=== PATIENT | female | born 1955 | race Caucasian/White ===

== ENCOUNTER 2020-02-26 17:20 | Inpatient (IN) | payer OTHER, MEDICARE, SELFPAY ==
[2020-02-26] VITALS (7 sets, daily range): BP systolic 101–132; BP diastolic 64–81; PULSE 67–89; RESP 14–20; TEMP 36–37.7; O2SAT 90–96; BMI 27.3; BMI 26.7
--- NOTE | 2020-02-26 18:10 | EKG12_ITS ---
Test Reason : COUGH Blood Pressure : / mmHG Vent. Rate : 072 BPM Atrial Rate : 072 BPM P-R Int : 122 ms QRS Dur : 106 ms QT Int : 414 ms P-R-T Axes : 007 043 046 degrees QTc Int : 453 ms Normal sinus rhythm Nonspecific ST abnormality Abnormal ECG Confirmed by SRAVAN MG, JACKELINE ([id number]), dictionary editor ANTONI BAUM ([id number]) on 02/29/2020 8:52:09 A M Referred By: CRISTIANE Confirmed By:ZURDO HINSON MD
--- NOTE | 2020-02-26 18:17 | NURSING ---
NO OLD EKGS
[2020-02-26 18:33] LABS: Absolute Neutrophil Count 3.3 X10^3/uL (2.0-7.7); Basophil# 0.02 X10^3/uL; Basophil% 0.5 % (0-1); Hematocrit 40.2 % (37-47); Hemoglobin 13.6 g/dL (12.0-15.0); Lymphocyte % 16.6 % (19-41); Mean Corp Hgb Conc 33.8 g/dL (32-36); Mean Corpuscular Hgb 30.2 pg (27.0-32.0); Mean Corpuscular Volume 89.1 fL (81-99); Mean Platelet Vol. 10.4 fl (6.2-12.0); Monocyte# 0.22 X10^3/uL; Monocyte% 5.2 % (0-10); NRBC Flagged by Analyzer 0 % (0-5); Neutrophil # 3.25 X10^3/uL (2.7-7.7); Neutrophil % 77.2 % (47-70); Platelet Count 238 K/mm3 (150-450); RBC Distribution Width CV 13.1 % (11.6-14.6); Red Blood Count 4.51 M/mm3 (4.2-5.4); White Blood Count 4.2 K/mm3 (4.4-11.0)
[2020-02-26] MEDS: dexAMETHasone 10 MG/ML Vial 6 MG IV (18:55)
[2020-02-26 18:59] LABS: ALB/GLOB Ratio 0.8 RATIO (0.9-2.4); AST(SGOT) 41 U/L (15-37); Alanine Aminotransfer ALT/SGPT 63 U/L (13-56); Albumin, Serum 3.7 g/dL (3.2-5.0); Alkaline Phosphatase 62 U/L (45-117); Anion Gap 8 (5-15); BUN 10 mg/dL (7-18); BUN/Creat Ratio 10.4 RATIO (10-20); Calcium,Total 9.2 mg/dL (8.5-10.1); Chloride 101 mmol/L (98-107); Creatinine, Serum 0.96 mg/dL (0.55-1.02); EST Glomerular Filtration Rate 63 mL/min (>60); Est Glom Filt Rate - Afr Amer 76 mL/min (>60); Estimated Creatinine Clearance 61.29 ml/min; Globulin 4.8 g/dL (2.2-4.2); Glucose 192 mg/dL (74-106); Potassium 2.9 mmol/L (3.5-5.1); Protein, Total 8.5 g/dL (6.4-8.2); Sodium Level 136 mmol/L (136-145)
--- NOTE | 2020-02-26 19:00 | RAD_ITS ---
STUDY: X-RAY CHEST REASON FOR EXAM: Female, 64 years old. Cough TECHNIQUE: Frontal view of the chest COMPARISON: 09/28/16 FINDINGS: There is a right lower lobe infiltrate. The lungs are otherwise clear. There are no pleural effusions. There is no pneumothorax. The heart is normal in size. The visualized osseous structures are within normal limits. RAD/Chest 1 View (Portable) IMPRESSION: Right lower lobe infiltrate. Electronically Signed: Giovanny Stafford, at 20:03 EST Tel , Service support ,
[2020-02-26 19:03] LABS: Lactic Acid 1.3 mmol/L (0.4-1.9)
--- NOTE | 2020-02-26 21:20 | ED.VIS.GEN ---
History of Present Illness Chief Complaint: Cough Narrative: Patient presents with shortness of breath for the past few days. She has subjective fevers. She is worried about Covid. She does not know about exposure. As I walk into the room she is hypoxic at 88%. She is complaining of myalgias and generalized weakness as well as shortness of breath. She has a cough which is mildly productive. Past Medical History - Allergies and Home Meds Allergies/Adverse Reactions: Allergies Penicillins Adverse Reaction (Mild, Verified 02/26/20 17:22) Rash ANTIHISTAMINES Adverse Reaction (Intermediate, Uncoded 02/26/20 17:22) Other intensifies RLS Primary Care Physician: Christian Saini WATER PURIFIER OPERATOR, WATER PURIFIER OPERATOR-C [Primary Care Provider] - Past Medical History: - - Hypertension, hypothyroidism, diabetes Smoking Status: Never smoker Review of Systems All systems negative except as indicated General: Reports: Fever. Denies: Chills Eyes: Denies: Visual changes - bilaterally ENT: Reports: Rhinorrhea. Denies: Sore throat Cardiovascular: Denies: Chest pain, Palpitations Respiratory: Reports: Dyspnea, Cough. Denies: Sputum Gastrointestinal: Denies: Abdominal pain, Nausea Genitourinary: Denies: Dysuria Musculoskeletal: Denies: Myalgias Skin: Denies: Rash, Abscess Neurological: Denies: Headache, Weakness Psych: Denies: Depression Endocrine: Denies: Polyuria Hematologic: Denies: Easy bruising Allergy: Denies: Uticaria Physical Exam Vital Signs/Narrative: Vital Signs Temp Pulse Resp BP Pulse Ox 02/26/20 19:01 71 18 115/77 96 02/26/20 17:45 90 02/26/20 17:22 99.8 F H 89 18 132/75 H 93 General: Well nourished, - - Patient does appear in some distress Head: Normocephalic Eyes: Negative for: Pale conjunctiva ENT: Moist mucous membranes Neck: Supple, Nontender Cardiovascular: Regular rate, Regular rhythm Respiratory: - - Course bilateral breath sounds she is speaking in full sentences she is slightly tachypneic. Abdomen: Soft, Nontender Back: Nontender, Normal Inspection Extremities: Nontender Skin: Normal color, No rash Neurological: Alert, Normal Strength, Normal Sensation Psychological: Normal affect Diagnostic/Tx/Re-eval Chest X-Ray - ED: 1 View, Read by ED Physician, Read by Radiologist, Normal, Heart, Right Infiltrate - Medical Decision Making Patient is found a pneumonia, Covid is negative however she does have loss of smell and taste and myalgia's, I will repeat an antibody test. Patient will be admitted she is hypoxic she is 87 to 88% on room air. ED Disposition - Plan for ED Patient: Disposition: Acute Care Hospital [facility] Diagnosis: Pneumonia, Hypoxia Referrals: Christian Saini WATER PURIFIER OPERATOR, WATER PURIFIER OPERATOR-C [Primary Care Provider] -
--- NOTE | 2020-02-26 21:36 | HP.PCM_ITS ---
Problem List (1) Pneumonia Status: Acute (2) Hypoxia Status: Acute (3) Pulmonary hypertension Status: Chronic Comment: Recent echocardiogram shows a PAS P of 30 mmHg, this qualifies as mild pulmonary hypertension. May consider repeating echocardiogram 6 months after initiating pressure support therapy. Follow-up with Dr. Whitley in 2 months. (4) JOSE EDUARDO (obstructive sleep apnea) Status: Chronic Comment: Patient has been ordered nasal CPAP of 11 cmH2O and will be set up soon. Will follow up with Dr. Whitley in 2 months to evaluate her response to pressure support therapy. The patient has been encouraged to contact the office with any difficulties that she may be experiencing in the meantime. No additional testing at this time. (5) Depression Status: Chronic (6) Anxiety Status: Chronic (7) Hyperlipemia Status: Chronic (8) Fatigue Status: Chronic (9) Joint pain Status: Chronic (10) Headache Status: Chronic (11) Snoring Status: Chronic (12) unintentional weight gain Status: Chronic (13) Shortness of breath Status: Chronic (14) Cough Status: Chronic Comment: Significantly improved with the addition of nasal steroid. (15) Allergic rhinitis Status: Chronic Qualifiers: Allergic rhinitis trigger: unspecified Allergic rhinitis seasonality: unspecified seasonality (16) GERD (gastroesophageal reflux disease) Status: Chronic (17) Postnasal drip Status: Chronic Comment: Has improved with the addition of the nasal steroid, both symptomatically as well as on physical exam. No change in maintenance medications at this time. Follow-up with Dr. Whitley in 2 months. (18) Narcolepsy Status: Chronic (19) Hypersomnia Status: Chronic History of Present Illness Date of Admission: 02/26/20 Chief Complaint: malaise The patient is a 64 year old F with a significant history of narcolepsy who presents emergency department with malaise x1 week. Associated with her symptoms is shortness of breath; a dry cough; fever and chills. She reported home temperature of 101.9 Fahrenheit. Further she has lost her sense of taste and a sense of smell. She reports muscle aches and diarrhea. She denies any nausea or vomiting. She think that she might have been exposed to somebody with COVID-19 virus. Past Medical History Past Medical History (Chronic Problems): Chronic Problems (Last Reviewed 02/26/20 @ 22:[address] Kwesi Hamilton MD) Pulmonary hypertension (Chronic) Recent echocardiogram shows a PAS P of 30 mmHg, this qualifies as mild pulmonary hypertension. May consider repeating echocardiogram 6 months after initiating pressure support therapy. Follow-up with Dr. Whitley in 2 months. JOSE EDUARDO (obstructive sleep apnea) (Chronic) Patient has been ordered nasal CPAP of 11 cmH2O and will be set up soon. Will follow up with Dr. Whitley in 2 months to evaluate her response to pressure support therapy. The patient has been encouraged to contact the office with any difficulties that she may be experiencing in the meantime. No additional testing at this time. Depression (Chronic) Anxiety (Chronic) Hyperlipemia (Chronic) Fatigue (Chronic) Joint pain (Chronic) Headache (Chronic) Snoring (Chronic) unintentional weight gain (Chronic) Shortness of breath (Chronic) Cough (Chronic) Significantly improved with the addition of nasal steroid. Allergic rhinitis (Chronic) GERD (gastroesophageal reflux disease) (Chronic) Postnasal drip (Chronic) Has improved with the addition of the nasal steroid, both symptomatically as well as on physical exam. No change in maintenance medications at this time. Follow-up with Dr. Whitlye in 2 months. Narcolepsy (Chronic) Hypersomnia (Chronic) Medical History: Medical History (Last Reviewed 02/26/20 @ 23:[address] Kwesi Hamilton MD) Depression (Chronic) F32.9 Anxiety (Chronic) F41.9 Hyperlipemia (Chronic) E78.5 Fatigue (Chronic) R53.83 Joint pain (Chronic) M25.50 Headache (Chronic) R51 Snoring (Chronic) R06.83 unintentional weight gain (Chronic) Shortness of breath (Chronic) R06.02 Cough (Chronic) R05 Significantly improved with the addition of nasal steroid. Allergic rhinitis (Chronic) J30.9 GERD (gastroesophageal reflux disease) (Chronic) K21.9 Postnasal drip (Chronic) R09.82 Has improved with the addition of the nasal steroid, both symptomatically as well as on physical exam. No change in maintenance medications at this time. Follow-up with Dr. Whitley in 2 months. Narcolepsy (Chronic) G47.419 Prophylactic vaccination against streptococcus pneumoniae and influenza (Inactive) Z23 Hypersomnia (Chronic) G47.10 Kidney stones Allergies Penicillins Adverse Reaction (Mild, Verified 02/26/20 17:22) Rash ANTIHISTAMINES Adverse Reaction (Intermediate, Uncoded 02/26/20 17:22) Other intensifies RLS Home Medications: Ambulatory Orders Medication Instructions Recorded Cetirizine HCl [Allergy Relief] 10 mg PO QHS 06/17/15 Esomeprazole Mag Trihydrate 40 mg PO DAILY 06/17/15 [Nexium] Estrogens, Conjugated [Premarin] 0.625 mg PO DAILY 06/17/15 Gabapentin [Neurontin] 300 mg PO QHS 06/17/15 Levothyroxine [Synthroid] 75 mcg PO DAILY 06/17/15 Ropinirole HCl [Requip] 1 mg PO QHS 06/17/15 buPROPion XL [Wellbutrin Xl] 150 mg PO DAILY 06/17/15 albuterol sulfate 90 mcg/actuation 2 puff INHALATION Q4H g 02/23/17 aerosol inhaler Benzonatate [Tessalon Perle] 100 mg PO TID PRN PRN 02/26/20 Buspirone HCl 10 mg PO BID 02/26/20 Fluoxetine [Prozac] 20 mg PO DAILY 02/26/20 Glipizide [Glucotrol] 10 mg PO DAILY 02/26/20 Metformin HCl 1,000 mg PO BID 02/26/20 Surgical History: Surgical History (Last Reviewed 02/26/20 @ 22:[address] Kwesi Hamilton MD) H/O: knee surgery Z98.890 History of bilateral carpal tunnel release Z98.890 History of cholecystectomy Z90.49 History of surgical removal of pituitary gland E89.3 History of tonsillectomy Z90.89 S/P ankle ligament repair Z98.890 Smoking Status: Never smoker - *Family History Paternal Family History: Family History (Last Reviewed 02/26/20 @ 22:[address] Kwesi Hamilton MD) Mother Hypertension High cholesterol Osteoporosis Depression CVA (cerebral vascular accident) Father Hypertension Review of Systems Constitutional: Reports: Anorexia, Chills, Fever, Malaise, Fatigue. Denies: Weight Change HEENT: Denies: Head Aches, Sinus Congestion, Sinus Drainage Cardiovascular: Denies: Chest Pain, Palpitations Respiratory: Reports: Cough, Shortness of Breath. Denies: Sputum production Gastrointestinal: Reports: Diarrhea. Denies: Abdominal Pain, Nausea, Vomiting Genitourinary: Denies: Dysuria Musculoskeletal: Reports: Muscle pain. Denies: Joint Pain, Joint Tenderness Skin: Denies: Rash, Wounds Neurological: Denies: Numbness, Tingling, Focal weakness Psychiatric: Denies: Anxiety, Depression, Homicidal Ideations, Suicidal Ideations Hematologic/ Lymphatic: Denies: Easy Bruising, Easy Bleeding VTE Information - Inpt Only VTE Present on Admission: No VTE Mechan Device Prophylaxis: None VTE Pharm Prophylaxis ordered?: Yes Patient Problems: Active and Suspected Problems (Last Reviewed 02/26/20 @ 22:[address] Kwesi Hamilton MD) Pneumonia (Acute) Hypoxia (Acute) - Physical Exam Vitals/I&O's: Vital Signs Temp Pulse Resp BP Pulse Ox 99.8 F H 71 18 115/77 96 02/26/20 17:22 02/26/20 19:01 02/26/20 19:01 02/26/20 19:01 02/26/20 19:01 Oxygen Flow Rate (L/min) 3 Oxygen Delivery Method Nasal Cannula Weight: 81.647 kg Body Mass Index (BMI) 27.3 General: Alert, Oriented x3, Cooperative HEENT: Atraumatic, PERRLA, EOMI, Normocephalic Neck: Supple, No JVD, Negative Carotid Bruits Lungs: Clear to auscultation, Normal air movement Cardiovascular: Regular rate, Normal S1, Normal S2, No murmurs Abdomen: Bowel Sounds Present, Soft, Non Tender Extremities: No edema, Capillary Refill Less than 3 Seconds Skin: No rashes, No breakdown Musculoskeletal: No Tenderness to Palpation of Joints or Extremities Neurological: Cranial nerves II-XII grossly intact Psych/Mental Status: Normal Affect, Appropriate Microbiology Past 72 Hours 02/26/20 18:11 Mucosa - Nose SARS-CoV-2 Antigen (Rapid) - Final Laboratory Results 02/26/20 18:11: WBC 4.2 L, RBC 4.51, Hgb 13.6, Hct 40.2, MCV 89.1, MCH 30.2, MCHC 33.8, RDW Std Deviation 43.0, RDW Coeff of Teresa 13.1, Plt Count 238, MPV 10.4, Immature Gran % (Auto) 0.500, Neut % (Auto) 77.2 H, Lymph % (Auto) 16.6 L, Bowman % (Auto) 5.2, Eos % (Auto) 0.0, Baso % (Auto) 0.5, Absolute Neuts (auto) 3.3, Absolute Lymphs (auto) 0.70 L, Nucleated RBC % 0 02/26/20 18:11: Sodium 136, Potassium 2.9 L, Chloride 101, Carbon Dioxide 27.0, Anion Gap 8, BUN 10, Creatinine 0.96, Estim Creat Clear Calc 61.29, Est GFR (MDRD) Af Amer 76, Est GFR (MDRD) Non-Af 63, BUN/Creatinine Ratio 10.4, Glucose 192 H, Calcium 9.2, Total Bilirubin 0.70, AST 41 H, ALT 63 H, Alkaline Phosphatase 62, Troponin I < 0.015, Total Protein 8.5 H, Albumin 3.7, Globulin 4.8 H, Albumin/Globulin Ratio 0.8 L 02/26/20 18:11: Lactic Acid 1.3 Current Medications Azithromycin 500 mg/ Dextrose 255 mls @ 250 mls/hr IV X1 ONE Stop: 02/26/20 22:21 Ceftriaxone Sodium (Rocephin) 1 gm in 50 mls @ 100 mls/hr IV X1 ONE Stop: 02/26/20 21:49 Assessment/Plan All Active Problems (Last Reviewed 02/26/20 @ 22:[address] Kwesi Hamilton MD) Pneumonia (Acute) Hypoxia (Acute) Acute hypoxemic respiratory insufficiency secondary to pneumonia On room air patient oxygen saturation was 87%. Patient required supplemental oxygenation at the emergency department. Supplemental oxygenation continued. Different diagnosis include community-acquired pneumonia or COVID-19 pneumonia. Patient noted to have leukopenia with lymphopenia. Noted to have elevated liver enzymes. Radiologist interpretation of chest x-ray: Right lower lobe infiltrate. Chest x-ray was independently interpreted. I agree radiologist interpretation. Rapid Covid antigen in the emergency department was negative. Emergency room doctor ordered PCR. I agree with emergent department doctor. Follow-up PCR Covid test. Given Decadron 6 mg IV at emergency department. Decadron 6 mg p.o. daily ordered. Will check a procalcitonin; D-dimer; strep pneumonia antigen; Legionella urine antigen; comprehensive respiratory pathogen panel. Insulin spirometer ordered. Tylenol prn for fever ordered. Mucinex for cough ordered. Blood culture x2 ordered emergency department; follow. Received azithromycin and ceftriaxone the emergency department. Will await COVID-19 virus. If COVID-19 virus is negative consider putting patient on antibiotics. If COVID-19 virus PCR is negative patient still has a high p robability of Covid. Trend CBC and CMP. Hypokalemia Secondary to diarrhea. P.o. potassium ordered at the ED. Potassium 40 milliequivalents IV ordered. Trend CMP. Check magnesium. Diabetes mellitus with hyperglycemia. Glucose elevated on presentation Home glipizide continue. Hold Metformin. With Decadron anticipate her insulin requirements will increase. Accu-Chek before every meal give correction scale insulin ordered. Obstructive sleep apnea Put on CPAP/BiPAP if uses same at home. DVT Prophylaxis Subcutaneous Lovenox. Inpatient E&M: 79393 Init Hosp L3
[2020-02-26] MEDS: Ceftriaxone 1 GM/50 ML BAG IV (21:47)
--- NOTE | 2020-02-26 23:52 | NURSING ---
EMERGENCY DOCUMENTATION
[2020-02-26 23:58] LABS: Fibrinogen 663 mg/dl (203-444)
[2020-02-27] VITALS (7 sets, daily range): BP systolic 101–119; BP diastolic 48–68; PULSE 62–76; RESP 16–18; TEMP 36.2–37.1; O2SAT 93–96
[2020-02-27] MEDS: guaiFENesin 1,200 MG Tablet 1200 MG PO ×3 (00:04→20:20)
[2020-02-27] MEDS: Enoxaparin 30 MG/0.3 ML Syringe SC ×3 (00:04→20:19)
[2020-02-27 00:05] LABS: Procalcitonin 0.08 ng/mL (0.00-0.09)
[2020-02-27 00:08] LABS: D-Dimer Quantitative (DVT/PE) 0.59 FEU/ug/m (0.27-0.49)
[2020-02-27] MEDS: Acetaminophen 325 MG Tablet 650 MG PO ×2 (00:25→20:27)
[2020-02-27] MEDS: Loperamide 2 MG Capsule PO ×2 (00:29→20:27)
[2020-02-27] MEDS: Insulin Lispro 100 UNIT/ML INSULN.PEN SC ×4 (06:17→20:25)
[2020-02-27 06:45] LABS: Bedside Glucose 273 mg/dL (70-110)
[2020-02-27 07:49] LABS: Absolute Lymphocyte Count 0.58 X10^3/uL (0.83-4.51); Basophil# 0.01 X10^3/uL; Basophil% 0.4 % (0-1); Hematocrit 39.7 % (37-47); Hemoglobin 13.1 g/dL (12.0-15.0); Lymphocyte # 0.58 X10^3/ul (4.0); Lymphocyte % 21.9 % (19-41); Mean Corpuscular Hgb 29.8 pg (27.0-32.0); Mean Corpuscular Volume 90.2 fL (81-99); Mean Platelet Vol. 10.9 fl (6.2-12.0); Monocyte% 3.8 % (0-10); NRBC Flagged by Analyzer 0 % (0-5); Neutrophil # 1.95 X10^3/uL (2.7-7.7); Neutrophil % 73.5 % (47-70); POSITIVE DIFFERENTIAL YES; Platelet Count 239 K/mm3 (150-450); RBC Distribution Width CV 13.1 % (11.6-14.6); RBC Distribution Width SD 43.3 fl (35.1-43.9); White Blood Count 2.7 K/mm3 (4.4-11.0)
[2020-02-27] MEDS: dexAMETHasone 4 MG Tablet 6 MG PO (07:49)
[2020-02-27] MEDS: Estrogens,Conj. 0.625 MG Tablet PO (07:50)
[2020-02-27] MEDS: busPIRone 5 MG Tablet 10 MG PO ×2 (07:50→20:21)
[2020-02-27 07:51] LABS: Differential Indicated SCAN CRITERIA MET
[2020-02-27] MEDS: Levothyroxine 75 MCG Tablet PO (07:51)
[2020-02-27] MEDS: Pantoprazole Sodium 40 MG Tablet PO (07:51)
[2020-02-27] MEDS: FLUoxetine 20 MG Capsule PO (07:51)
[2020-02-27] MEDS: glipiZIDE 10 MG Tablet PO (07:51)
[2020-02-27] MEDS: buPROPion (XL) 150 MG TABLET.XL PO (07:51)
[2020-02-27] MEDS: Benzonatate 100 MG Capsule PO ×2 (07:51→20:27)
[2020-02-27 08:15] LABS: ALB/GLOB Ratio 0.8 RATIO (0.9-2.4); AST(SGOT) 30 U/L (15-37); Alanine Aminotransfer ALT/SGPT 57 U/L (13-56); Albumin, Serum 3.3 g/dL (3.2-5.0); Alkaline Phosphatase 58 U/L (45-117); Anion Gap 6 (5-15); BUN 15 mg/dL (7-18); BUN/Creat Ratio 18.8 RATIO (10-20); Calcium,Total 8.9 mg/dL (8.5-10.1); Chloride 104 mmol/L (98-107); EST Glomerular Filtration Rate 77 mL/min (>60); Est Glom Filt Rate - Afr Amer 93 mL/min (>60); Estimated Creatinine Clearance 73.55 ml/min; Glucose 254 mg/dL (74-106); Magnesium 2.1 mg/dL (1.6-2.6); Potassium 3.9 mmol/L (3.5-5.1); Protein, Total 7.3 g/dL (6.4-8.2); Sodium Level 138 mmol/L (136-145)
--- NOTE | 2020-02-27 13:45 | NURSING ---
RN CM Assessment Called patient bedside phone as currently in COVID isolation. Introduced role of RN CM to patient.? Patient is alert, oriented and able?to participate in RN CM Assessment. ?Care providers, pharmacy, and demographics verified. Admit Dx: PNA. COVID positive on 02/26/2020 Re-Admit: No Barriers/Issues: None. Patient was staying with her Dtr prior to coming to hospital to help her- dtr had twins x2 weeks ago.Patient looked over her [employer] Insurance card with this insurance writer and states her card says [employer] Select Open Access. PCP: Christian Saini NP Specialists: None Preferred Pharmacy: [facility] Insurance: A[employer]na, Mcr A Rx Benefit:?Yes ?LNOK: De Sheikh LW/HPOA: None on file Living Arrangements:?Lives with her in a 2SH, living area is 12-133 steps to get to. States has 2BR on main mt withliving area and bathroom that she can quarantine separate from . No steps to enter home. ADL?s: Independent with ambulation and ADLs Transportation: Both patient and drive. Either or family will transport upon DC. DME: CPAP- [employer]. Has a shower chair, 2ww, rollator all available to her if needed. HHC: None SNF: None Goal: None and not sure of any needs at this time. States she is feeling a little weak and gets SOB w/exertion. Currently on O2 2.5L. States if Oxygen needed at DC- list provided via phone and preference is [employer]. States if HHC PT recommended at DC, only in network HHC noted was [id number] and patient ok with that. Aware RNCM will continue to follow. DC PLAN: Home with possible home O2-[employer], possible HH PT- [id number]. GUZMAN Perez
[2020-02-27 14:06] LABS: Bedside Glucose 403 mg/dL (70-110)
[2020-02-27 16:16] LABS: Bedside Glucose 298 mg/dL (70-110)
[2020-02-27] MEDS: Gabapentin 300 MG Capsule PO (20:20)
[2020-02-27] MEDS: Pramipexole Di-HCl 0.5 MG Tablet PO (20:21)
[2020-02-27] MEDS: MELATONIN 3 MG TABLET PO (20:21)
[2020-02-27] MEDS: Loratadine 10 MG Tablet PO (20:21)
[2020-02-27] MEDS: 0.9% Saline Lock 10 ML Syringe IV (20:29)
[2020-02-27 20:45] LABS: Bedside Glucose 350 mg/dL (70-110)
--- NOTE | 2020-02-27 22:24 | PN_ITS ---
Patient Problems: Active and Suspected Problems (Last Reviewed 02/26/20 @ 23:[address] Kwesi Hamilton MD) Pneumonia (Acute) Hypoxia (Acute) Subjective: Feels stable. No increasing oxygen requirement at the moment Vitals/I&O's: Vital Signs Temp Pulse Resp BP Pulse Ox 98.8 F 71 18 105/48 L 94 02/27/20 20:34 02/27/20 20:34 02/27/20 20:34 02/27/20 20:34 02/27/20 20:34 Oxygen Flow Rate (L/min) 3 Oxygen Delivery Method Nasal Cannula Weight: 175 lb 12.816 oz Body Mass Index (BMI) 26.7 Intake and Output for Last 24 Hours 02/25/20 02/26/20 02/27/20 23:59 23:59 23:59 Intake Total 305 / 305 364.50 / 364.50 Balance 305 / 305 364.50 / 364.50 General: Alert, Oriented x3, Cooperative, No apparent distress HEENT: Atraumatic, PERRLA, EOMI, Normocephalic Oral: Moist Mucosa Neck: Supple, No JVD Lungs: Normal air movement, No rhonchi, No wheeze, No rales, Diminished Cardiovascular: Regular rate, Regular Rhythm, Normal S1, Normal S2, No murmurs Abdomen: Soft, Non Tender, Non-Distended, No Hepato-splenomegaly Extremities: No edema, Capillary Refill Less than 3 Seconds Skin: No rashes, No breakdown Neurological: Neuro grossly intact, Sensory exam intact to light touch and pain Psych/Mental Status: Normal Affect, Appropriate Microbiology Past 72 Hours 02/26/20 22:10 Mucosa - Nose Respiratory Panel (PCR) - Final 02/27/20 00:15 Urine, Clean Catch Streptococcus pneumoniae Antigen (M - Final 02/27/20 00:15 Urine, Clean Catch Legionella Antigen - Final 02/26/20 18:11 Mucosa - Nose SARS-CoV-2 Antigen (Rapid) - Final Laboratory Results 02/26/20 22:10: COVID-19 (KAREN) Detected 02/26/20 23:33: Fibrinogen 663 H, D-Dimer Quant (PE/DVT) 0.59 H* 02/26/20 23:33: Procalcitonin 0.08 02/27/20 06:10: WBC 2.7 L, RBC 4.40, Hgb 13.1, Hct 39.7, MCV 90.2, MCH 29.8, MCHC 33.0, RDW Std Deviation 43.3, RDW Coeff of Teresa 13.1, Plt Count 239, MPV 10.9, Immature Gran % (Auto) 0.400, Neut % (Auto) 73.5 H, Lymph % (Auto) 21.9, Young % (Auto) 3.8, Eos % (Auto) 0.0, Baso % (Auto) 0.4, Absolute Neuts (auto) 2.0, Absolute Lymphs (auto) 0.58 L, Nucleated RBC % 0, Diff Path Review July02/27/20 06:10: Sodium 138, Potassium 3.9, Chloride 104, Carbon Dioxide 28.0, Anion Gap 6, BUN 15, Creatinine 0.80, Estim Creat Clear Calc 73.55, Est GFR (MDRD) Af Amer 93, Est GFR (MDRD) Non-Af 77, BUN/Creatinine Ratio 18.8, Glucose 254 H, Calcium 8.9, Magnesium 2.1, Total Bilirubin 0.40, AST 30, ALT 57 H, Alkaline Phosphatase 58, Total Protein 7.3, Albumin 3.3, Globulin 4.0, Albumin/Globulin Ratio 0.8 L 02/27/20 06:11: POC Glucose 273 H 02/27/20 10:58: POC Glucose 403 H 02/27/20 15:31: POC Glucose 298 H 02/27/20 20:25: POC Glucose 350 H Current Medications Acetaminophen (Acetaminophen 325 Mg Tablet) 650 mg PO Q6H PRN PRN PRN Reason: Pain Score 1-10/Temp > 100.7 F Last Admin: 02/27/20 20:27 Dose: 650 mg Documented by: Albuterol Sulfate (Albuterol Ih 8.5 Gm (Proair) Inhaler (200 Puffs)) 2 puff INHALATION Q4H PRN PRN PRN Reason: SOB/WHEEZING Benzonatate (Benzonatate 100 Mg Capsule) 100 mg PO TID PRN PRN PRN Reason: COUGH Last Admin: 02/27/20 20:27 Dose: 100 mg Documented by: Bupropion HCl (Bupropion (Xl) 150 Mg Tablet.Xl) 150 mg PO DAILY RUPALI Last Admin: 02/27/20 07:51 Dose: 150 mg Documented by: Buspirone HCl (Buspirone 5 Mg Tablet) 10 mg PO BID [facility] Last Admin: 02/27/20 20:21 Dose: 10 mg Documented by: Dexamethasone (Dexamethasone 4 Mg Tablet) 6 mg PO DAILY@0800 [facility] Last Admin: 02/27/20 07:49 Dose: 6 mg Documented by: Dextrose (Dextrose 50%-Water 25 Gm/50 Ml Disp.Syrin) 0 gm IV X1 PRN; Protocol PRN Reason: Hypoglycemia Enoxaparin Sodium (Enoxaparin 30 Mg/0.3 Ml Syringe) 30 mg SC BID [facility] Last Admin: 02/27/20 20:19 Dose: 30 mg Documented by: Estrogens Conjugated (Estrogens,Conj. 0.625 Mg Tablet) 0.625 mg PO DAILY [facility] Last Admin: 02/27/20 07:50 Dose: 0.625 mg Documented by: Fluoxetine HCl (Fluoxetine 20 Mg Capsule) 20 mg PO DAILY [facility] Last Admin: 02/27/20 07:51 Dose: 20 mg Documented by: Gabapentin (Gabapentin 300 Mg Capsule) 300 mg PO QHS [facility] Last Admin: 02/27/20 20:20 Dose: 300 mg Documented by: Glipizide (Glipizide 10 Mg Tablet) 10 mg PO DAILYCM [facility] Last Admin: 02/27/20 07:51 Dose: 10 mg Documented by: Glucagon (Glucagon 1 Mg/Ml Syringe) 1 mg IM .X1 PRN PRN Reason: Hypoglycemia Guaifenesin (Guaifenesin 1,200 Mg Tablet) 1,200 mg PO BID [facility] Last Admin: 02/27/20 20:20 Dose: 1,200 mg Documented by: Sodium Chloride () 250 mls @ 15 mls/hr IV .[id number] PRN PRN Reason: Saline Flush Last Infusion: 02/27/20 04:18 Dose: 0 mls/hr Documented by: Remdesivir 100 mg/ Sodium (Chloride) 250 mls @ 125 mls/hr IV Q24H [facility] Stop: 03/01/20 23:59 Last Admin: 02/27/20 20:29 Dose: 125 mls/hr Documented by: Insulin Human Lispro (Insulin Lispro 100 Unit/Ml Insuln.Pen) 0 unit SC ACHS [facility]; Protocol Last Admin: 02/27/20 20:25 Dose: 8 units Documented by: Levothyroxine Sodium (Levothyroxine 75 Mcg Tablet) 75 mcg PO DAILY [facility] Last Admin: 02/27/20 07:51 Dose: 75 mcg Documented by: Loperamide HCl (Loperamide 2 Mg Capsule) 2 mg PO Q4H PRN PRN PRN Reason: Diarrhea Last Admin: 02/27/20 20:27 Dose: 2 mg Documented by: Loratadine (Loratadine 10 Mg Tablet) 10 mg PO QHS [facility] Last Admin: 02/27/20 20:21 Dose: 10 mg Documented by: Melatonin (Melatonin 3 Mg Tablet) 3 mg PO QHS PRN PRN PRN Reason: INSOMNIA Last Admin: 02/27/20 20:21 Dose: 3 mg Documented by: Ondansetron HCl (Ondansetron 4 Mg/2 Ml Vial) 4 mg IV Q8H PRN PRN PRN Reason: NAUSEA/VOMITING Pantoprazole Sodium (Pantoprazole Sodium 40 Mg Tablet) 40 mg PO DAILY [facility] Last Admin: 02/27/20 07:51 Dose: 40 mg Documented by: Pramipexole Dihydrochloride (Pramipexole Di-Hcl 0.5 Mg Tablet) 0.5 mg PO QHS [facility] Last Admin: 02/27/20 20:21 Dose: 0.5 mg Documented by: Senna/Docusate Sodium (Senna/Docusate Sodium 1 Tablet) 2 tablet PO BID PRN PRN PRN Reason: Constipation Sodium Chloride (0.9% Saline Lock 10 Ml Syringe) 10 - 40 ml IV UD PRN PRN Reason: SALINE FLUSH Last Admin: 02/27/20 20:29 Dose: 10 ml Documented by: STROKE Vital Signs/Narrative: Vital Signs Temp Pulse Resp BP Pulse Ox 02/27/20 20:34 98.8 F 71 18 105/48 L 94 Medical Necessity - Tobacco Use Smoking Status: Never smoker Tobacco Use: Non-smoker Assessment/Plan All Active Problems (Last Reviewed 02/26/20 @ 23:[address] Kwesi Hamilton MD) Pneumonia (Acute) Hypoxia (Acute) 1. Acute hypoxic respiratory insufficiency secondary to COVID-19 pneumonia/JOSE EDUARDO -Continue with Decadron and remdesivir. -She is maintaining her oxygen sats on 2 L -In discussion with her her initial symptoms started last Tuesday -Need to monitor renal function as well as liver function while on remdesivir -Can place her on CPAP/BiPAP at night if she uses it at home -D-dimer was normal for age 2. DM 2 -Continue with her glimepiride, will adjust her insulin as necessary given the Decadron -Checks AC at bedtime 3. Anxiety/depression -Stable -Continue with Wellbutrin, BuSpar, Prozac 4. GERD -Stable -Continue with PPI 5. Hypothyroidism -Stable -Continue with Synthroid DVT: Lovenox Inpatient E&M: 79172 Subs Hosp L2
[2020-02-28] VITALS (7 sets, daily range): BP systolic 101–115; BP diastolic 51–71; PULSE 63–80; RESP 17–20; TEMP 36.4–37.1; O2SAT 91–94
[2020-02-28 05:42] LABS: Absolute Lymphocyte Count 1.28 X10^3/uL (0.83-4.51); Absolute Neutrophil Count 5.4 X10^3/uL (2.0-7.7); Basophil# 0.01 X10^3/uL; Basophil% 0.1 % (0-1); Hematocrit 34.9 % (37-47); Hemoglobin 11.5 g/dL (12.0-15.0); Lymphocyte # 1.28 X10^3/ul (4.0); Lymphocyte % 18.2 % (19-41); Mean Corpuscular Hgb 29.4 pg (27.0-32.0); Mean Corpuscular Volume 89.3 fL (81-99); Mean Platelet Vol. 10.7 fl (6.2-12.0); Monocyte# 0.34 X10^3/uL; Monocyte% 4.8 % (0-10); NRBC Flagged by Analyzer 0 % (0-5); Neutrophil # 5.35 X10^3/uL (2.7-7.7); Neutrophil % 76.2 % (47-70); Platelet Count 259 K/mm3 (150-450); RBC Distribution Width CV 13.2 % (11.6-14.6); RBC Distribution Width SD 43.5 fl (35.1-43.9); Red Blood Count 3.91 M/mm3 (4.2-5.4)
[2020-02-28 06:05] LABS: ALB/GLOB Ratio 0.7 RATIO (0.9-2.4); AST(SGOT) 14 U/L (15-37); Alanine Aminotransfer ALT/SGPT 40 U/L (13-56); Albumin, Serum 2.8 g/dL (3.2-5.0); Alkaline Phosphatase 46 U/L (45-117); Anion Gap 7 (5-15); BUN 21 mg/dL (7-18); BUN/Creat Ratio 26.8 RATIO (10-20); Chloride 108 mmol/L (98-107); Creatinine, Serum 0.78 mg/dL (0.55-1.02); EST Glomerular Filtration Rate 79 mL/min (>60); Est Glom Filt Rate - Afr Amer 96 mL/min (>60); Estimated Creatinine Clearance 75.44 ml/min; Globulin 4.2 g/dL (2.2-4.2); Glucose 212 mg/dL (74-106); Potassium 3.2 mmol/L (3.5-5.1); Sodium Level 141 mmol/L (136-145)
[2020-02-28] MEDS: Levothyroxine 75 MCG Tablet PO (08:05)
[2020-02-28] MEDS: FLUoxetine 20 MG Capsule PO (08:06)
[2020-02-28] MEDS: dexAMETHasone 4 MG Tablet 6 MG PO (08:06)
[2020-02-28] MEDS: Enoxaparin 30 MG/0.3 ML Syringe SC ×2 (08:06→21:07)
[2020-02-28] MEDS: guaiFENesin 1,200 MG Tablet 1200 MG PO ×2 (08:07→21:07)
[2020-02-28] MEDS: busPIRone 5 MG Tablet 10 MG PO ×2 (08:08→21:07)
[2020-02-28] MEDS: glipiZIDE 10 MG Tablet PO (08:08)
[2020-02-28] MEDS: Pantoprazole Sodium 40 MG Tablet PO (08:13)
[2020-02-28] MEDS: Insulin Lispro 100 UNIT/ML INSULN.PEN SC ×7 (08:13→21:14)
[2020-02-28 10:50] LABS: Bedside Glucose 171 mg/dL (70-110)
[2020-02-28] MEDS: Loperamide 2 MG Capsule PO (10:58)
[2020-02-28] MEDS: buPROPion (XL) 150 MG TABLET.XL PO (11:03)
[2020-02-28 12:05] LABS: Pathologist Review Reviewed
--- NOTE | 2020-02-28 14:00 | PN_ITS ---
Patient Problems: Active and Suspected Problems (Last Reviewed 02/26/20 @ 23:[address] Kwesi Hamilton MD) Pneumonia (Acute) Hypoxia (Acute) Subjective: Doing well. No issues overnight. Feels better than when she came in but about the same from yesterday Vitals/I&O's: Vital Signs Temp Pulse Resp BP Pulse Ox 98.8 F 67 20 H 101/70 91 02/28/20 07:54 02/28/20 07:54 02/28/20 07:54 02/28/20 07:54 02/28/20 10:53 Oxygen Flow Rate (L/min) 3 Oxygen Delivery Method Nasal Cannula Weight: 175 lb 12.816 oz Body Mass Index (BMI) 26.7 Intake and Output for Last 24 Hours 02/26/20 02/27/20 02/28/20 23:59 23:59 23:59 Intake Total 305 / 305 614.50 / 954.50 400 / 400 Balance 305 / 305 614.50 / 954.50 400 / 400 General: Alert, Oriented x3, Cooperative, No apparent distress HEENT: Atraumatic, PERRLA, EOMI, Normocephalic Oral: Moist Mucosa Neck: Supple, No JVD Lungs: Normal air movement, No rhonchi, No wheeze, No rales, Diminished Cardiovascular: Regular rate, Regular Rhythm, Normal S1, Normal S2, No murmurs Abdomen: Soft, Non Tender, Non-Distended, No Hepato-splenomegaly Extremities: No edema, Capillary Refill Less than 3 Seconds Skin: No rashes, No breakdown Neurological: Neuro grossly intact, Sensory exam intact to light touch and pain Psych/Mental Status: Normal Affect, Appropriate Microbiology Past 72 Hours 02/26/20 22:10 Mucosa - Nose Respiratory Panel (PCR) - Final 02/27/20 00:15 Urine, Clean Catch Streptococcus pneumoniae Antigen (M - Final 02/27/20 00:15 Urine, Clean Catch Legionella Antigen - Final 02/26/20 18:11 Mucosa - Nose SARS-CoV-2 Antigen (Rapid) - Final Laboratory Results 02/27/20 06:10: Diff Path Review Reviewed 02/27/20 10:58: POC Glucose 403 H 02/27/20 15:31: POC Glucose 298 H 02/27/20 20:25: POC Glucose 350 H 02/28/20 05:30: WBC 7.0, RBC 3.91 L, Hgb 11.5 L, Hct 34.9 L, MCV 89.3, MCH 29.4, MCHC 33.0, RDW Std Deviation 43.5, RDW Coeff of Teresa 13.2, Plt Count 259, MPV 10.7, Immature Gran % (Auto) 0.700, Neut % (Auto) 76.2 H, Lymph % (Auto) 18.2 L, [place] % (Auto) 4.8, Eos % (Auto) 0.0, Baso % (Auto) 0.1, Absolute Neuts (auto) 5.4, Absolute Lymphs (auto) 1.28, Nucleated RBC % 0 02/28/20 05:30: Sodium 141, Potassium 3.2 L, Chloride 108 H, Carbon Dioxide 26.0, Anion Gap 7, BUN 21 H, Creatinine 0.78, Estim Creat Clear Calc 75.44, Est GFR (MDRD) Af Amer 96, Est GFR (MDRD) Non-Af 79, BUN/Creatinine Ratio 26.8 H, Glucose 212 H, Calcium 9.0, Total Bilirubin 0.30, AST 14 L, ALT 40, Alkaline Phosphatase 46, Total Protein 7.0, Albumin 2.8 L, Globulin 4.2, Albumin/Globulin Ratio 0.7 L 02/28/20 07:51: POC Glucose 171 H Current Medications Acetaminophen (Acetaminophen 325 Mg Tablet) 650 mg PO Q6H PRN PRN PRN Reason: Pain Score 1-10/Temp > 100.7 F Last Admin: 02/27/20 20:27 Dose: 650 mg Documented by: Albuterol Sulfate (Albuterol Ih 8.5 Gm (Proair) Inhaler (200 Puffs)) 2 puff INHALATION Q4H PRN PRN PRN Reason: SOB/WHEEZING Benzonatate (Benzonatate 100 Mg Capsule) 100 mg PO TID PRN PRN PRN Reason: COUGH Last Admin: 02/27/20 20:27 Dose: 100 mg Documented by: Bupropion HCl (Bupropion (Xl) 150 Mg Tablet.Xl) 150 mg PO DAILY [facility] Last Admin: 02/28/20 11:03 Dose: 150 mg Documented by: Buspirone HCl (Buspirone 5 Mg Tablet) 10 mg PO BID [facility] Last Admin: 12/10/20 08:08 Dose: 10 mg Documented by: Dexamethasone (Dexamethasone 4 Mg Tablet) 6 mg PO DAILY@0800 [facility] Last Admin: 02/28/20 08:06 Dose: 6 mg Documented by: Dextrose (Dextrose 50%-Water 25 Gm/50 Ml Disp.Syrin) 0 gm IV X1 PRN; Protocol PRN Reason: Hypoglycemia Enoxaparin Sodium (Enoxaparin 30 Mg/0.3 Ml Syringe) 30 mg SC BID [facility] Last Admin: 02/28/20 08:06 Dose: 30 mg Documented by: Estrogens Conjugated (Estrogens,Conj. 0.625 Mg Tablet) 0.625 mg PO DAILY [facility] Last Admin: 02/28/20 10:35 Dose: Not Given Documented by: Fluoxetine HCl (Fluoxetine 20 Mg Capsule) 20 mg PO DAILY [facility] Last Admin: 02/28/20 08:06 Dose: 20 mg Documented by: Gabapentin (Gabapentin 300 Mg Capsule) 300 mg PO QHS [facility] Last Admin: 02/27/20 20:20 Dose: 300 mg Documented by: Glipizide (Glipizide 10 Mg Tablet) 10 mg PO DAILYCM [facility] Last Admin: 02/28/20 08:08 Dose: 10 mg Documented by: Glucagon (Glucagon 1 Mg/Ml Syringe) 1 mg IM .X1 PRN PRN Reason: Hypoglycemia Guaifenesin (Guaifenesin 1,200 Mg Tablet) 1,200 mg PO BID [facility] Last Admin: 02/28/20 08:07 Dose: 1,200 mg Documented by: Sodium Chloride () 250 mls @ 15 mls/hr IV .[id number] PRN PRN Reason: Saline Flush Last Infusion: 02/27/20 04:18 Dose: 0 mls/hr Documented by: Remdesivir 100 mg/ Sodium (Chloride) 250 mls @ 125 mls/hr IV Q24H [facility] Stop: 03/01/20 23:59 Last Infusion: 02/27/20 22:45 Dose: Infused Documented by: Insulin Glargine (Insulin Glargine 100 Units/Ml Pen) 10 units SC BREAKFAST [facility] Last Admin: 02/28/20 10:58 Dose: 10 units Documented by: Insulin Human Lispro (Insulin Lispro 100 Unit/Ml Insuln.Pen) 0 unit SC ACHS [facility]; Protocol Last Admin: 02/28/20 11:00 Dose: 2 units Documented by: Insulin Human Lispro (Insulin Lispro 100 Unit/Ml Insuln.Pen) 5 unit SC TIDAC [facility] Last Admin: 02/28/20 11:00 Dose: 5 units Documented by: Levothyroxine Sodium (Levothyroxine 75 Mcg Tablet) 75 mcg PO DAILY [facility] Last Admin: 02/28/20 08:05 Dose: 75 mcg Documented by: Loperamide HCl (Loperamide 2 Mg Capsule) 2 mg PO Q4H PRN PRN PRN Reason: Diarrhea Last Admin: 02/28/20 10:58 Dose: 2 mg Documented by: Loratadine (Loratadine 10 Mg Tablet) 10 mg PO QHS [facility] Last Admin: 02/27/20 20:21 Dose: 10 mg Documented by: Melatonin (Melatonin 3 Mg Tablet) 3 mg PO QHS PRN PRN PRN Reason: INSOMNIA Last Admin: 02/27/20 20:21 Dose: 3 mg Documented by: Ondansetron HCl (Ondansetron 4 Mg/2 Ml Vial) 4 mg IV Q8H PRN PRN PRN Reason: NAUSEA/VOMITING Pantoprazole Sodium (Pantoprazole Sodium 40 Mg Tablet) 40 mg PO DAILY [facility] Last Admin: 02/28/20 08:13 Dose: 40 mg Documented by: Pramipexole Dihydrochloride (Pramipexole Di-Hcl 0.5 Mg Tablet) 0.5 mg PO QHS [facility] Last Admin: 02/27/20 20:21 Dose: 0.5 mg Documented by: Senna/Docusate Sodium (Senna/Docusate Sodium 1 Tablet) 2 tablet PO BID PRN PRN PRN Reason: Constipation Sodium Chloride (0.9% Saline Lock 10 Ml Syringe) 10 - 40 ml IV UD PRN PRN Reason: SALINE FLUSH Last Admin: 02/27/20 20:29 Dose: 10 ml Documented by: STROKE Vital Signs/Narrative: Vital Signs Pulse Ox 02/28/20 10:53 91 Medical Necessity - Tobacco Use Smoking Status: Never smoker Tobacco Use: Non-smoker Assessment/Plan All Active Problems (Last Reviewed 02/26/20 @ 23:[address] Kwesi Hamilton MD) Pneumonia (Acute) Hypoxia (Acute) 1. Acute hypoxic respiratory insufficiency secondary to COVID-19 pneumonia/JOSE EDUARDO -Continue with Decadron and remdesivir. -She is maintaining her oxygen sats on 2 L -In discussion with her her initial symptoms started last Tuesday -Need to monitor renal function as well as liver function while on remdesivir -Can place her on CPAP/BiPAP at night if she uses it at home -D-dimer was normal for age 2. DM 2 -Continue with her glimepiride, will adjust her insulin as necessary given the Decadron -Checks AC at bedtime 3. Anxiety/depression -Stable -Continue with Wellbutrin, BuSpar, Prozac 4. GERD -Stable -Continue with PPI 5. Hypothyroidism -Stable -Continue with Synthroid DVT: Lovenox Inpatient E&M: 20479 Subs Hosp L2
[2020-02-28 15:31] LABS: Bedside Glucose 188 mg/dL (70-110)
--- NOTE | 2020-02-28 15:40 | CHAPLAIN ---
Type of Pastoral Visit ___ Initial Visit ___ Follow-up Visit ___ On-call Visit ___ General Patient Visit ___ Spiritual Assessment ___ Family Conference ___ Bereavement ___ Rapid Response ___ Code Blue _x__ Other (describe below) Pastoral Care Referral From ___ Patient ___ Family ___ Nurse ___ Physician ___ Information Management Manager ___ Goal Umpire _x__ Other (describe below) Sacrament/Intervention _x__ Active listening ___ Anointing ___ Moravian ___ Bereavement ___ Communion ___ Ayala exploration ___ ___ Life review ___ Prayer ___ Reconciliation ___ Sacrament of Sick ___ Supportive presence ___ Wedding ___ Other (describe below) Pastoral Comments phone call made into this isolation room to offer spiritual and emotional support; pt reports that she is doing ok and has good support for herself from large family and confucianism
[2020-02-28 17:15] LABS: Bedside Glucose 339 mg/dL (70-110)
[2020-02-28] MEDS: MELATONIN 3 MG TABLET PO (21:06)
[2020-02-28] MEDS: Benzonatate 100 MG Capsule PO (21:06)
[2020-02-28] MEDS: Pramipexole Di-HCl 0.5 MG Tablet PO (21:07)
[2020-02-28] MEDS: Loratadine 10 MG Tablet PO (21:07)
[2020-02-28] MEDS: Gabapentin 300 MG Capsule PO (21:07)
[2020-02-28 21:21] LABS: Bedside Glucose 323 mg/dL (70-110)
[2020-02-29 03:39] VITALS: BP 105/53; PULSE 66; RESP 17; TEMP 36.6; O2SAT 94
[2020-02-29] MEDS: Benzonatate 100 MG Capsule PO ×2 (03:42→12:22)
[2020-02-29 06:43] LABS: Absolute Lymphocyte Count 1.64 X10^3/uL (0.83-4.51); Absolute Neutrophil Count 3.2 X10^3/uL (2.0-7.7); Basophil# 0.02 X10^3/uL; Basophil% 0.4 % (0-1); Hematocrit 35.5 % (37-47); Hemoglobin 11.4 g/dL (12.0-15.0); Lymphocyte # 1.64 X10^3/ul (4.0); Lymphocyte % 31.2 % (19-41); Mean Corp Hgb Conc 32.1 g/dL (32-36); Mean Corpuscular Hgb 29.5 pg (27.0-32.0); Mean Corpuscular Volume 91.7 fL (81-99); Mean Platelet Vol. 10.9 fl (6.2-12.0); Monocyte# 0.35 X10^3/uL; Monocyte% 6.7 % (0-10); NRBC Flagged by Analyzer 0 % (0-5); Neutrophil # 3.19 X10^3/uL (2.7-7.7); Neutrophil % 60.6 % (47-70); Platelet Count 280 K/mm3 (150-450); RBC Distribution Width CV 13.5 % (11.6-14.6); RBC Distribution Width SD 45.8 fl (35.1-43.9); Red Blood Count 3.87 M/mm3 (4.2-5.4); White Blood Count 5.3 K/mm3 (4.4-11.0)
[2020-02-29 07:04] LABS: ALB/GLOB Ratio 0.8 RATIO (0.9-2.4); AST(SGOT) 14 U/L (15-37); Alanine Aminotransfer ALT/SGPT 36 U/L (13-56); Albumin, Serum 2.8 g/dL (3.2-5.0); Alkaline Phosphatase 48 U/L (45-117); Anion Gap 6 (5-15); BUN 20 mg/dL (7-18); BUN/Creat Ratio 27.2 RATIO (10-20); Calcium,Total 8.7 mg/dL (8.5-10.1); Chloride 109 mmol/L (98-107); Creatinine, Serum 0.74 mg/dL (0.55-1.02); EST Glomerular Filtration Rate 85 mL/min (>60); Est Glom Filt Rate - Afr Amer 103 mL/min (>60); Estimated Creatinine Clearance 79.52 ml/min; Globulin 3.4 g/dL (2.2-4.2); Glucose 155 mg/dL (74-106); Potassium 3.8 mmol/L (3.5-5.1); Protein, Total 6.2 g/dL (6.4-8.2); Sodium Level 142 mmol/L (136-145)
[2020-02-29 08:24] VITALS: BP 116/72; PULSE 66; RESP 18; TEMP 36.9; O2SAT 94
[2020-02-29 08:41] VITALS: O2SAT 94
[2020-02-29] MEDS: glipiZIDE 10 MG Tablet PO (09:05)
[2020-02-29] MEDS: guaiFENesin 1,200 MG Tablet 1200 MG PO ×2 (09:05→22:25)
[2020-02-29] MEDS: dexAMETHasone 4 MG Tablet 6 MG PO (09:10)
[2020-02-29] MEDS: busPIRone 5 MG Tablet 10 MG PO ×2 (09:10→22:24)
[2020-02-29] MEDS: Insulin Lispro 100 UNIT/ML INSULN.PEN SC ×6 (09:10→22:24)
[2020-02-29] MEDS: Enoxaparin 30 MG/0.3 ML Syringe SC ×2 (11:17→22:25)
[2020-02-29] MEDS: Pantoprazole Sodium 40 MG Tablet PO (11:18)
--- NOTE | 2020-02-29 11:18 | PN_ITS ---
Patient Problems: Active and Suspected Problems (Last Reviewed 02/26/20 @ 23:[address] Kwesi Hamilton MD) Pneumonia (Acute) Hypoxia (Acute) Subjective: Doing well. She did need to go up to 4 L to maintain her oxygen sats. Vitals/I&O's: Vital Signs Temp Pulse Resp BP Pulse Ox 98.4 F 66 18 116/72 94 02/29/20 08:24 02/29/20 08:24 02/29/20 08:24 02/29/20 08:24 02/29/20 08:41 Oxygen Flow Rate (L/min) 4 Oxygen Delivery Method Nasal Cannula Weight: 175 lb 12.816 oz Body Mass Index (BMI) 26.7 Intake and Output for Last 24 Hours 02/27/20 02/28/20 02/29/20 23:59 23:59 23:59 Intake Total 614.50 / 954.50 840 / 840 690 / 690 Balance 614.50 / 954.50 840 / 840 690 / 690 General: Alert, Oriented x3, Cooperative, No apparent distress HEENT: Atraumatic, PERRLA, EOMI, Normocephalic Oral: Moist Mucosa Neck: Supple, No JVD Lungs: Normal air movement, No rhonchi, No wheeze, No rales, Diminished Cardiovascular: Regular rate, Regular Rhythm, Normal S1, Normal S2, No murmurs Abdomen: Soft, Non Tender, Non-Distended, No Hepato-splenomegaly Extremities: No edema, Capillary Refill Less than 3 Seconds Skin: No rashes, No breakdown Neurological: Neuro grossly intact, Sensory exam intact to light touch and pain Psych/Mental Status: Normal Affect, Appropriate Microbiology Past 72 Hours 02/26/20 18:40 Blood Culture (Wb) - Anticubital Left Blood Culture - Preliminary No growth in 48 hours. 02/26/20 18:45 Blood Culture (Wb) - Anticubital Right Blood Culture - Preliminary No growth in 48 hours. 02/26/20 22:10 Mucosa - Nose Respiratory Panel (PCR) - Final 02/27/20 00:15 Urine, Clean Catch Streptococcus pneumoniae Antigen (M - Final 02/27/20 00:15 Urine, Clean Catch Legionella Antigen - Final 02/26/20 18:11 Mucosa - Nose SARS-CoV-2 Antigen (Rapid) - Final Laboratory Results 02/27/20 06:10: Diff Path Review Reviewed 02/28/20 10:58: POC Glucose 188 H 02/28/20 16:03: POC Glucose 339 H 02/28/20 21:13: POC Glucose 323 H 02/29/20 05:40: WBC 5.3, RBC 3.87 L, Hgb 11.4 L, Hct 35.5 L, MCV 91.7, MCH 29.5, MCHC 32.1, RDW Std Deviation 45.8 H, RDW Coeff of Teresa 13.5, Plt Count 280, MPV 10.9, Immature Gran % (Auto) 1.100 H, Neut % (Auto) 60.6, Lymph % (Auto) 31.2, [place] % (Auto) 6.7, Eos % (Auto) 0.0, Baso % (Auto) 0.4, Absolute Neuts (auto) 3.2, Absolute Lymphs (auto) 1.64, Nucleated RBC % 0 02/29/20 05:40: Sodium 142, Potassium 3.8, Chloride 109 H, Carbon Dioxide 27.0, Anion Gap 6, BUN 20 H, Creatinine 0.74, Estim Creat Clear Calc 79.52, Est GFR (MDRD) Af Amer 103, Est GFR (MDRD) Non-Af 85, BUN/Creatinine Ratio 27.2 H, Glucose 155 H, Calcium 8.7, Total Bilirubin 0.20, AST 14 L, ALT 36, Alkaline Phosphatase 48, Total Protein 6.2 L, Albumin 2.8 L, Globulin 3.4, Albumin/Globulin Ratio 0.8 L Current Medications Acetaminophen (Acetaminophen 325 Mg Tablet) 650 mg PO Q6H PRN PRN PRN Reason: Pain Score 1-10/Temp > 100.7 F Last Admin: 02/27/20 20:27 Dose: 650 mg Documented by: Albuterol Sulfate (Albuterol Ih 8.5 Gm (Proair) Inhaler (200 Puffs)) 2 puff INHALATION Q4H PRN PRN PRN Reason: SOB/WHEEZING Benzonatate (Benzonatate 100 Mg Capsule) 100 mg PO TID PRN PRN PRN Reason: COUGH Last Admin: 02/29/20 03:42 Dose: 100 mg Documented by: Bupropion HCl (Bupropion (Xl) 150 Mg Tablet.Xl) 150 mg PO DAILY [facility] Last Admin: 02/28/20 11:03 Dose: 150 mg Documented by: Buspirone HCl (Buspirone 5 Mg Tablet) 10 mg PO BID [facility] Last Admin: 02/28/20 21:07 Dose: 10 mg Documented by: Dexamethasone (Dexamethasone 4 Mg Tablet) 6 mg PO DAILY@0800 [facility] Last Admin: 02/28/20 08:06 Dose: 6 mg Documented by: Dextrose (Dextrose 50%-Water 25 Gm/50 Ml Disp.Syrin) 0 gm IV X1 PRN; Protocol PRN Reason: Hypoglycemia Enoxaparin Sodium (Enoxaparin 30 Mg/0.3 Ml Syringe) 30 mg SC BID [facility] Last Admin: 02/28/20 21:07 Dose: 30 mg Documented by: Estrogens Conjugated (Estrogens,Conj. 0.625 Mg Tablet) 0.625 mg PO DAILY [facility] Last Admin: 02/28/20 10:35 Dose: Not Given Documented by: Fluoxetine HCl (Fluoxetine 20 Mg Capsule) 20 mg PO DAILY [facility] Last Admin: 02/28/20 08:06 Dose: 20 mg Documented by: Gabapentin (Gabapentin 300 Mg Capsule) 300 mg PO QHS [facility] Last Admin: 02/28/20 21:07 Dose: 300 mg Documented by: Glipizide (Glipizide 10 Mg Tablet) 10 mg PO DAILYCM [facility] Last Admin: 02/28/20 08:08 Dose: 10 mg Documented by: Glucagon (Glucagon 1 Mg/Ml Syringe) 1 mg IM .X1 PRN PRN Reason: Hypoglycemia Guaifenesin (Guaifenesin 1,200 Mg Tablet) 1,200 mg PO BID [facility] Last Admin: 02/28/20 21:07 Dose: 1,200 mg Documented by: Sodium Chloride () 250 mls @ 15 mls/hr IV .[id number] PRN PRN Reason: Saline Flush Last Infusion: 02/27/20 04:18 Dose: 0 mls/hr Documented by: Remdesivir 100 mg/ Sodium (Chloride) 250 mls @ 125 mls/hr IV Q24H [facility] Stop: 03/01/20 23:59 Last Infusion: 02/29/20 00:25 Dose: Infused Documented by: Insulin Glargine (Insulin Glargine 100 Units/Ml Pen) 10 units SC BREAKFAST [facility] Last Admin: 02/28/20 10:58 Dose: 10 units Documented by: Insulin Human Lispro (Insulin Lispro 100 Unit/Ml Insuln.Pen) 0 unit SC ACHS [facility]; Protocol Last Admin: 02/28/20 21:14 Dose: 6 units Documented by: Insulin Human Lispro (Insulin Lispro 100 Unit/Ml Insuln.Pen) 5 unit SC TIDAC [facility] Last Admin: 02/28/20 16:08 Dose: 5 units Documented by: Levothyroxine Sodium (Levothyroxine 75 Mcg Tablet) 75 mcg PO DAILY [facility] Last Admin: 02/28/20 08:05 Dose: 75 mcg Documented by: Loperamide HCl (Loperamide 2 Mg Capsule) 2 mg PO Q4H PRN PRN PRN Reason: Diarrhea Last Admin: 02/28/20 10:58 Dose: 2 mg Documented by: Loratadine (Loratadine 10 Mg Tablet) 10 mg PO QHS [facility] Last Admin: 02/28/20 21:07 Dose: 10 mg Documented by: Melatonin (Melatonin 3 Mg Tablet) 3 mg PO QHS PRN PRN PRN Reason: INSOMNIA Last Admin: 02/28/20 21:06 Dose: 3 mg Documented by: Ondansetron HCl (Ondansetron 4 Mg/2 Ml Vial) 4 mg IV Q8H PRN PRN PRN Reason: NAUSEA/VOMITING Pantoprazole Sodium (Pantoprazole Sodium 40 Mg Tablet) 40 mg PO DAILY [facility] Last Admin: 02/28/20 08:13 Dose: 40 mg Documented by: Pramipexole Dihydrochloride (Pramipexole Di-Hcl 0.5 Mg Tablet) 0.5 mg PO QHS [facility] Last Admin: 02/28/20 21:07 Dose: 0.5 mg Documented by: Senna/Docusate Sodium (Senna/Docusate Sodium 1 Tablet) 2 tablet PO BID PRN PRN PRN Reason: Constipation Sodium Chloride (0.9% Saline Lock 10 Ml Syringe) 10 - 40 ml IV UD PRN PRN Reason: SALINE FLUSH Last Admin: 02/27/20 20:29 Dose: 10 ml Documented by: STROKE Vital Signs/Narrative: Vital Signs Temp Pulse Resp BP Pulse Ox 02/29/20 08:41 94 02/29/20 08:24 98.4 F 66 18 116/72 94 Medical Necessity - Tobacco Use Smoking Status: Never smoker Tobacco Use: Non-smoker Assessment/Plan All Active Problems (Last Reviewed 02/26/20 @ 23:[address] Kwesi Hamilton MD) Pneumonia (Acute) Hypoxia (Acute) 1. Acute hypoxic respiratory insufficiency secondary to COVID-19 pneumonia/JOSE EDUARDO -Continue with Decadron and remdesivir. -She is maintaining her oxygen sats on 4 L -In discussion with her her initial symptoms started last Tuesday -Need to monitor renal function as well as liver function while on remdesivir -Can place her on CPAP/BiPAP at night if she uses it at home -D-dimer was normal for age 2. DM 2 -Continue with her glimepiride, will adjust her insulin as necessary given the Decadron -Checks AC at bedtime 3. Anxiety/depression -Stable -Continue with Wellbutrin, BuSpar, Prozac 4. GERD -Stable -Continue with PPI 5. Hypothyroidism -Stable -Continue with Synthroid DVT: Lovenox
[2020-02-29] MEDS: Levothyroxine 75 MCG Tablet PO (11:19)
[2020-02-29] MEDS: buPROPion (XL) 150 MG TABLET.XL PO (11:19)
[2020-02-29] MEDS: FLUoxetine 20 MG Capsule PO (11:19)
[2020-02-29 12:00] LABS: Bedside Glucose 137 mg/dL (70-110)
[2020-02-29 12:30] LABS: Bedside Glucose 257 mg/dL (70-110)
[2020-02-29 17:17] VITALS: BP 124/74; PULSE 81; RESP 16; TEMP 36.4; O2SAT 95
[2020-02-29 17:45] LABS: Bedside Glucose 351 mg/dL (70-110)
[2020-02-29] MEDS: Gabapentin 300 MG Capsule PO (22:23)
[2020-02-29] MEDS: Pramipexole Di-HCl 0.5 MG Tablet PO (22:23)
[2020-02-29] MEDS: Loratadine 10 MG Tablet PO (22:24)
[2020-02-29] MEDS: MELATONIN 3 MG TABLET PO (22:33)
[2020-02-29 22:38] VITALS: BP 117/64; PULSE 64; RESP 18; TEMP 36.8; O2SAT 92
[2020-03-01 00:16] LABS: Bedside Glucose 283 mg/dL (70-110)
[2020-03-01 03:08] VITALS: BP 102/54; PULSE 55; RESP 16; TEMP 36.1; O2SAT 95
[2020-03-01 07:34] LABS: Absolute Lymphocyte Count 1.81 X10^3/uL (0.83-4.51); Absolute Neutrophil Count 2.7 X10^3/uL (2.0-7.7); Basophil# 0.01 X10^3/uL; Basophil% 0.2 % (0-1); Hematocrit 34.2 % (37-47); Lymphocyte # 1.81 X10^3/ul (4.0); Lymphocyte % 36.4 % (19-41); Mean Corp Hgb Conc 32.2 g/dL (32-36); Mean Corpuscular Hgb 29.3 pg (27.0-32.0); Mean Corpuscular Volume 91.2 fL (81-99); Mean Platelet Vol. 10.6 fl (6.2-12.0); Monocyte# 0.34 X10^3/uL; Monocyte% 6.8 % (0-10); NRBC Flagged by Analyzer 0 % (0-5); Neutrophil # 2.71 X10^3/uL (2.7-7.7); Neutrophil % 54.6 % (47-70); Platelet Count 298 K/mm3 (150-450); RBC Distribution Width CV 13.5 % (11.6-14.6); RBC Distribution Width SD 45.3 fl (35.1-43.9); Red Blood Count 3.75 M/mm3 (4.2-5.4)
[2020-03-01 07:50] LABS: ALB/GLOB Ratio 0.7 RATIO (0.9-2.4); AST(SGOT) 20 U/L (15-37); Alanine Aminotransfer ALT/SGPT 35 U/L (13-56); Albumin, Serum 2.7 g/dL (3.2-5.0); Alkaline Phosphatase 46 U/L (45-117); Anion Gap 5 (5-15); BUN 18 mg/dL (7-18); BUN/Creat Ratio 27.7 RATIO (10-20); Calcium,Total 8.6 mg/dL (8.5-10.1); Chloride 108 mmol/L (98-107); Creatinine, Serum 0.65 mg/dL (0.55-1.02); EST Glomerular Filtration Rate 98 mL/min (>60); Est Glom Filt Rate - Afr Amer 119 mL/min (>60); Estimated Creatinine Clearance 90.53 ml/min; Globulin 3.7 g/dL (2.2-4.2); Glucose 148 mg/dL (74-106); Potassium 3.4 mmol/L (3.5-5.1); Protein, Total 6.4 g/dL (6.4-8.2); Sodium Level 140 mmol/L (136-145)
[2020-03-01 08:17] VITALS: BP 112/65; PULSE 60; RESP 18; TEMP 36.7; O2SAT 92
[2020-03-01] MEDS: Insulin Lispro 100 UNIT/ML INSULN.PEN SC ×6 (08:23→23:13)
[2020-03-01] MEDS: FLUoxetine 20 MG Capsule PO (08:24)
[2020-03-01] MEDS: busPIRone 5 MG Tablet 10 MG PO ×2 (08:25→23:16)
[2020-03-01] MEDS: Pantoprazole Sodium 40 MG Tablet PO (08:25)
[2020-03-01] MEDS: dexAMETHasone 4 MG Tablet 6 MG PO (08:25)
[2020-03-01] MEDS: buPROPion (XL) 150 MG TABLET.XL PO (08:25)
[2020-03-01] MEDS: glipiZIDE 10 MG Tablet PO (08:25)
[2020-03-01] MEDS: Levothyroxine 75 MCG Tablet PO (08:25)
[2020-03-01] MEDS: Enoxaparin 30 MG/0.3 ML Syringe SC ×2 (08:26→23:10)
[2020-03-01] MEDS: guaiFENesin 1,200 MG Tablet 1200 MG PO ×2 (08:26→23:10)
[2020-03-01 08:45] VITALS: O2SAT 91
[2020-03-01] MEDS: Benzonatate 100 MG Capsule PO (09:18)
--- NOTE | 2020-03-01 10:24 | PCM.PN.HOSP ---
Patient Problems: Active and Suspected Problems (Last Reviewed 02/26/20 @ 23:[address] Kwesi Hamilton MD) Pneumonia (Acute) Hypoxia (Acute) Subjective: Continued on her 4 L nasal cannula. She is maintaining her oxygen saturations. No issues overnight. Vitals/I&O's: Vital Signs Temp Pulse Resp BP Pulse Ox 98.1 F 60 18 112/65 91 03/01/20 08:17 03/01/20 08:17 03/01/20 08:17 03/01/20 08:17 03/01/20 08:45 Oxygen Flow Rate (L/min) 5 Oxygen Delivery Method Nasal Cannula Weight: 175 lb 12.816 oz Body Mass Index (BMI) 26.7 Intake and Output for Last 24 Hours 02/28/20 02/29/20 03/01/20 23:59 23:59 23:59 Intake Total 840 / 840 1090 / 1090 250 / 250 Output Total 1040 / 1040 Balance 840 / 840 50 / 50 250 / 250 General: Alert, Oriented x3, Cooperative, No apparent distress HEENT: Atraumatic, PERRLA, EOMI, Normocephalic Oral: Moist Mucosa Neck: Supple, No JVD Lungs: Normal air movement, No rhonchi, No wheeze, No rales, Diminished Cardiovascular: Regular rate, Regular Rhythm, Normal S1, Normal S2, No murmurs Abdomen: Soft, Non Tender, Non-Distended, No Hepato-splenomegaly Extremities: No edema, Capillary Refill Less than 3 Seconds Skin: No rashes, No breakdown Neurological: Neuro grossly intact, Sensory exam intact to light touch and pain Psych/Mental Status: Normal Affect, Appropriate Microbiology Past 72 Hours 02/26/20 18:40 Blood Culture (Wb) - Anticubital Left Blood Culture - Preliminary No growth in 48 hours. 02/26/20 18:45 Blood Culture (Wb) - Anticubital Right Blood Culture - Preliminary No growth in 48 hours. Laboratory Results 02/29/20 08:28: POC Glucose 137 H 02/29/20 12:11: POC Glucose 257 H 02/29/20 17:09: POC Glucose 351 H 02/29/20 22:20: POC Glucose 283 H 03/01/20 06:29: WBC 5.0, RBC 3.75 L, Hgb 11.0 L, Hct 34.2 L, MCV 91.2, MCH 29.3, MCHC 32.2, RDW Std Deviation 45.3 H, RDW Coeff of Teresa 13.5, Plt Count 298, MPV 10.6, Immature Gran % (Auto) 2.000 H, Neut % (Auto) 54.6, Lymph % (Auto) 36.4, Door % (Auto) 6.8, Eos % (Auto) 0.0, Baso % (Auto) 0.2, Absolute Neuts (auto) 2.7, Absolute Lymphs (auto) 1.81, Nucleated RBC % 0 03/01/20 06:29: Sodium 140, Potassium 3.4 L, Chloride 108 H, Carbon Dioxide 27.0, Anion Gap 5, BUN 18, Creatinine 0.65, Estim Creat Clear Calc 90.53, Est GFR (MDRD) Af Amer 119, Est GFR (MDRD) Non-Af 98, BUN/Creatinine Ratio 27.7 H, Glucose 148 H, Calcium 8.6, Total Bilirubin 0.40, AST 20, ALT 35, Alkaline Phosphatase 46, Total Protein 6.4, Albumin 2.7 L, Globulin 3.7, Albumin/Globulin Ratio 0.7 L Current Medications Acetaminophen (Acetaminophen 325 Mg Tablet) 650 mg PO Q6H PRN PRN PRN Reason: Pain Score 1-10/Temp > 100.7 F Last Admin: 02/27/20 20:27 Dose: 650 mg Documented by: Albuterol Sulfate (Albuterol Ih 8.5 Gm (Proair) Inhaler (200 Puffs)) 2 puff INHALATION Q4H PRN PRN PRN Reason: SOB/WHEEZING Benzonatate (Benzonatate 100 Mg Capsule) 100 mg PO TID PRN PRN PRN Reason: COUGH Last Admin: 03/01/20 09:18 Dose: 100 mg Documented by: Bupropion HCl (Bupropion (Xl) 150 Mg Tablet.Xl) 150 mg PO DAILY [facility] Last Admin: 03/01/20 08:25 Dose: 150 mg Documented by: Buspirone HCl (Buspirone 5 Mg Tablet) 10 mg PO BID [facility] Last Admin: 03/01/20 08:25 Dose: 10 mg Documented by: Dexamethasone (Dexamethasone 4 Mg Tablet) 6 mg PO DAILY@0800 [facility] Last Admin: 03/01/20 08:25 Dose: 6 mg Documented by: Dextrose (Dextrose 50%-Water 25 Gm/50 Ml Disp.Syrin) 0 gm IV X1 PRN; Protocol PRN Reason: Hypoglycemia Enoxaparin Sodium (Enoxaparin 30 Mg/0.3 Ml Syringe) 30 mg SC BID [facility] Last Admin: 03/01/20 08:26 Dose: 30 mg Documented by: Estrogens Conjugated (Estrogens,Conj. 0.625 Mg Tablet) 0.625 mg PO DAILY [facility] Last Admin: 03/01/20 08:26 Dose: Not Given Documented by: Fluoxetine HCl (Fluoxetine 20 Mg Capsule) 20 mg PO DAILY [facility] Last Admin: 03/01/20 08:24 Dose: 20 mg Documented by: Gabapentin (Gabapentin 300 Mg Capsule) 300 mg PO QHS [facility] Last Admin: 02/29/20 22:23 Dose: 300 mg Documented by: Glipizide (Glipizide 10 Mg Tablet) 10 mg PO DAILYCM [facility] Last Admin: 03/01/20 08:25 Dose: 10 mg Documented by: Glucagon (Glucagon 1 Mg/Ml Syringe) 1 mg IM .X1 PRN PRN Reason: Hypoglycemia Guaifenesin (Guaifenesin 1,200 Mg Tablet) 1,200 mg PO BID [facility] Last Admin: 03/01/20 08:26 Dose: 1,200 mg Documented by: Sodium Chloride () 250 mls @ 15 mls/hr IV .[id number] PRN PRN Reason: Saline Flush Last Infusion: 02/27/20 04:18 Dose: 0 mls/hr Documented by: Remdesivir 100 mg/ Sodium (Chloride) 250 mls @ 125 mls/hr IV Q24H [facility] Stop: 03/01/20 23:59 Last Infusion: 03/01/20 00:26 Dose: Infused Documented by: Insulin Glargine (Insulin Glargine 100 Units/Ml Pen) 10 units SC BREAKFAST [facility] Last Admin: 03/01/20 08:26 Dose: 10 units Documented by: Insulin Human Lispro (Insulin Lispro 100 Unit/Ml Insuln.Pen) 0 unit SC ACHS [facility]; Protocol Last Admin: 03/01/20 08:23 Dose: Not Given Documented by: Insulin Human Lispro (Insulin Lispro 100 Unit/Ml Insuln.Pen) 5 unit SC TIDAC [facility] Last Admin: 03/01/20 08:23 Dose: 5 units Documented by: Levothyroxine Sodium (Levothyroxine 75 Mcg Tablet) 75 mcg PO DAILY [facility] Last Admin: 03/01/20 08:25 Dose: 75 mcg Documented by: Loperamide HCl (Loperamide 2 Mg Capsule) 2 mg PO Q4H PRN PRN PRN Reason: Diarrhea Last Admin: 02/28/20 10:58 Dose: 2 mg Documented by: Loratadine (Loratadine 10 Mg Tablet) 10 mg PO QHS [facility] Last Admin: 02/29/20 22:24 Dose: 10 mg Documented by: Melatonin (Melatonin 3 Mg Tablet) 3 mg PO QHS PRN PRN PRN Reason: INSOMNIA Last Admin: 02/29/20 22:33 Dose: 3 mg Documented by: Ondansetron HCl (Ondansetron 4 Mg/2 Ml Vial) 4 mg IV Q8H PRN PRN PRN Reason: NAUSEA/VOMITING Pantoprazole Sodium (Pantoprazole Sodium 40 Mg Tablet) 40 mg PO DAILY [facility] Last Admin: 03/01/20 08:25 Dose: 40 mg Documented by: Pramipexole Dihydrochloride (Pramipexole Di-Hcl 0.5 Mg Tablet) 0.5 mg PO QHS [facility] Last Admin: 02/29/20 22:23 Dose: 0.5 mg Documented by: Senna/Docusate Sodium (Senna/Docusate Sodium 1 Tablet) 2 tablet PO BID PRN PRN PRN Reason: Constipation Sodium Chloride (0.9% Saline Lock 10 Ml Syringe) 10 - 40 ml IV UD PRN PRN Reason: SALINE FLUSH Last Admin: 02/27/20 20:29 Dose: 10 ml Documented by: STROKE Vital Signs/Narrative: Vital Signs Temp Pulse Resp BP Pulse Ox 03/01/20 08:45 91 03/01/20 08:17 98.1 F 60 18 112/65 92 Medical Necessity - Tobacco Use Smoking Status: Never smoker Tobacco Use: Non-smoker Assessment/Plan All Active Problems (Last Reviewed 02/26/20 @ 23:[address] Kwesi Hamilton MD) Pneumonia (Acute) Hypoxia (Acute) 1. Acute hypoxic respiratory insufficiency secondary to COVID-19 pneumonia/JOSE EDUARDO -Continue with Decadron and remdesivir. -She is maintaining her oxygen sats on 4 L -In discussion with her her initial symptoms started last Tuesday -Need to monitor renal function as well as liver function while on remdesivir -Can place her on CPAP/BiPAP at night if she uses it at home -D-dimer was normal for age 2. DM 2 -Continue with her glimepiride, will adjust her insulin as necessary given the Decadron -Checks AC at bedtime 3. Anxiety/depression -Stable -Continue with Wellbutrin, BuSpar, Prozac 4. GERD -Stable -Continue with PPI 5. Hypothyroidism -Stable -Continue with Synthroid DVT: Lovenox Inpatient E&M: 32099 Subs Hosp L2
[2020-03-01 11:41] LABS: Bedside Glucose 141 mg/dL (70-110)
[2020-03-01 12:06] LABS: Bedside Glucose 280 mg/dL (70-110)
[2020-03-01 14:45] VITALS: BP 115/67; PULSE 64; RESP 18; TEMP 36.9; O2SAT 93
[2020-03-01 18:00] LABS: Bedside Glucose 442 mg/dL (70-110)
[2020-03-01 22:45] VITALS: PULSE 67; RESP 18; TEMP 36.6; O2SAT 93
[2020-03-01] MEDS: Pramipexole Di-HCl 0.5 MG Tablet PO (23:10)
[2020-03-01] MEDS: Loratadine 10 MG Tablet PO ×3 (23:10→23:14)
[2020-03-01] MEDS: Gabapentin 300 MG Capsule PO (23:12)
[2020-03-01 23:46] LABS: Bedside Glucose 334 mg/dL (70-110)
[2020-03-02 05:56] LABS: Absolute Lymphocyte Count 1.44 X10^3/uL (0.83-4.51); Absolute Neutrophil Count 3.6 X10^3/uL (2.0-7.7); Basophil# 0.03 X10^3/uL; Basophil% 0.5 % (0-1); Eosinophil# 0.01 X10^3/uL; Eosinophils% 0.2 % (0-5); Hematocrit 34.6 % (37-47); Hemoglobin 11.4 g/dL (12.0-15.0); Lymphocyte # 1.44 X10^3/ul (4.0); Lymphocyte % 25.7 % (19-41); Mean Corp Hgb Conc 32.9 g/dL (32-36); Mean Corpuscular Hgb 29.8 pg (27.0-32.0); Mean Corpuscular Volume 90.3 fL (81-99); Mean Platelet Vol. 10.5 fl (6.2-12.0); Monocyte# 0.38 X10^3/uL; Monocyte% 6.8 % (0-10); NRBC Flagged by Analyzer 0 % (0-5); Neutrophil # 3.55 X10^3/uL (2.7-7.7); Neutrophil % 63.2 % (47-70); Platelet Count 331 K/mm3 (150-450); RBC Distribution Width CV 13.2 % (11.6-14.6); RBC Distribution Width SD 43.3 fl (35.1-43.9); Red Blood Count 3.83 M/mm3 (4.2-5.4); White Blood Count 5.6 K/mm3 (4.4-11.0)
[2020-03-02 06:07] VITALS: BP 124/74; PULSE 69; RESP 20; TEMP 36.8; O2SAT 93
[2020-03-02 06:23] LABS: ALB/GLOB Ratio 0.7 RATIO (0.9-2.4); AST(SGOT) 23 U/L (15-37); Alanine Aminotransfer ALT/SGPT 40 U/L (13-56); Albumin, Serum 2.7 g/dL (3.2-5.0); Alkaline Phosphatase 49 U/L (45-117); Anion Gap 6 (5-15); BUN 14 mg/dL (7-18); Calcium,Total 8.9 mg/dL (8.5-10.1); Chloride 107 mmol/L (98-107); Creatinine, Serum 0.61 mg/dL (0.55-1.02); EST Glomerular Filtration Rate 106 mL/min (>60); Est Glom Filt Rate - Afr Amer 128 mL/min (>60); Estimated Creatinine Clearance 96.46 ml/min; Glucose 183 mg/dL (74-106); Potassium 3.5 mmol/L (3.5-5.1); Protein, Total 6.7 g/dL (6.4-8.2); Sodium Level 141 mmol/L (136-145)
[2020-03-02 07:20] VITALS: O2SAT 94
[2020-03-02 07:37] VITALS: BP 126/74; PULSE 72; RESP 20; TEMP 37.1; O2SAT 93
[2020-03-02] MEDS: Insulin Lispro 100 UNIT/ML INSULN.PEN SC ×7 (07:41→21:42)
[2020-03-02] MEDS: glipiZIDE 10 MG Tablet PO (07:42)
[2020-03-02] MEDS: Enoxaparin 30 MG/0.3 ML Syringe SC ×2 (07:42→21:42)
[2020-03-02] MEDS: Levothyroxine 75 MCG Tablet PO (07:42)
[2020-03-02] MEDS: dexAMETHasone 4 MG Tablet 6 MG PO (07:42)
[2020-03-02] MEDS: FLUoxetine 20 MG Capsule PO (07:43)
[2020-03-02] MEDS: busPIRone 5 MG Tablet 10 MG PO ×2 (07:43→21:41)
[2020-03-02] MEDS: Pantoprazole Sodium 40 MG Tablet PO (07:44)
[2020-03-02] MEDS: buPROPion (XL) 150 MG TABLET.XL PO (07:44)
[2020-03-02] MEDS: guaiFENesin 1,200 MG Tablet 1200 MG PO ×2 (07:44→21:41)
[2020-03-02 08:06] LABS: Bedside Glucose 220 mg/dL (70-110)
--- NOTE | 2020-03-02 10:38 | PN_ITS ---
Patient Problems: Active and Suspected Problems (Last Reviewed 02/26/20 @ 23:[address] Kwesi Hamilton MD) Pneumonia (Acute) Hypoxia (Acute) Subjective: Feels about the same as yesterday. Her oxygen is stable at 5 L. No issues overnight. Vitals/I&O's: Vital Signs Temp Pulse Resp BP Pulse Ox 98.7 F 72 20 H 126/74 H 93 03/02/20 07:37 03/02/20 07:37 03/02/20 07:37 03/02/20 07:37 03/02/20 07:37 Oxygen Flow Rate (L/min) 5 Oxygen Delivery Method Nasal Cannula Weight: 175 lb 12.816 oz Body Mass Index (BMI) 26.7 Intake and Output for Last 24 Hours 02/29/20 03/01/20 03/02/20 23:59 23:59 23:59 Intake Total 1090 / 1090 500 / 500 1150 / 1150 Output Total 1040 / 1040 550 / 550 Balance 50 / 50 -50 / -50 1150 / 1150 General: Alert, Oriented x3, Cooperative, No apparent distress HEENT: Atraumatic, PERRLA, EOMI, Normocephalic Oral: Moist Mucosa Neck: Supple, No JVD Lungs: Normal air movement, No rhonchi, No wheeze, No rales, Diminished Cardiovascular: Regular rate, Regular Rhythm, Normal S1, Normal S2, No murmurs Abdomen: Soft, Non Tender, Non-Distended, No Hepato-splenomegaly Extremities: No edema, Capillary Refill Less than 3 Seconds Skin: No rashes, No breakdown Neurological: Neuro grossly intact, Sensory exam intact to light touch and pain Psych/Mental Status: Normal Affect, Appropriate Microbiology Past 72 Hours 02/26/20 18:40 Blood Culture (Wb) - Anticubital Left Blood Culture - Preliminary No growth in 48 hours. 02/26/20 18:45 Blood Culture (Wb) - Anticubital Right Blood Culture - Preliminary No growth in 48 hours. Laboratory Results 03/01/20 08:17: POC Glucose 141 H 03/01/20 11:44: POC Glucose 280 H 03/01/20 17:32: POC Glucose 442 H 03/01/20 23:09: POC Glucose 334 H 03/02/20 04:55: WBC 5.6, RBC 3.83 L, Hgb 11.4 L, Hct 34.6 L, MCV 90.3, MCH 29.8, MCHC 32.9, RDW Std Deviation 43.3, RDW Coeff of Teresa 13.2, Plt Count 331, MPV 10.5, Immature Gran % (Auto) 3.600 H, Neut % (Auto) 63.2, Lymph % (Auto) 25.7, [place] % (Auto) 6.8, Eos % (Auto) 0.2, Baso % (Auto) 0.5, Absolute Neuts (auto) 3.6, Absolute Lymphs (auto) 1.44, Nucleated RBC % 0 03/02/20 04:55: Sodium 141, Potassium 3.5, Chloride 107, Carbon Dioxide 28.0, Anion Gap 6, BUN 14, Creatinine 0.61, Estim Creat Clear Calc 96.46, Est GFR (MDRD) Af Amer 128, Est GFR (MDRD) Non-Af 106, BUN/Creatinine Ratio 23.0 H, Glucose 183 H, Calcium 8.9, Total Bilirubin 0.40, AST 23, ALT 40, Alkaline Phosphatase 49, Total Protein 6.7, Albumin 2.7 L, Globulin 4.0, Albumin/Globulin Ratio 0.7 L 03/02/20 07:32: POC Glucose 220 H Current Medications Acetaminophen (Acetaminophen 325 Mg Tablet) 650 mg PO Q6H PRN PRN PRN Reason: Pain Score 1-10/Temp > 100.7 F Last Admin: 02/27/20 20:27 Dose: 650 mg Documented by: Albuterol Sulfate (Albuterol Ih 8.5 Gm (Proair) Inhaler (200 Puffs)) 2 puff INHALATION Q4H PRN PRN PRN Reason: SOB/WHEEZING Benzonatate (Benzonatate 100 Mg Capsule) 100 mg PO TID PRN PRN PRN Reason: COUGH Last Admin: 03/01/20 09:18 Dose: 100 mg Documented by: Bupropion HCl (Bupropion (Xl) 150 Mg Tablet.Xl) 150 mg PO DAILY [facility] Last Admin: 03/02/20 07:44 Dose: 150 mg Documented by: Buspirone HCl (Buspirone 5 Mg Tablet) 10 mg PO BID [facility] Last Admin: 03/02/20 07:43 Dose: 10 mg Documented by: Dexamethasone (Dexamethasone 4 Mg Tablet) 6 mg PO DAILY@0800 [facility] Last Admin: 03/02/20 07:42 Dose: 6 mg Documented by: Dextrose (Dextrose 50%-Water 25 Gm/50 Ml Disp.Syrin) 0 gm IV X1 PRN; Protocol PRN Reason: Hypoglycemia Enoxaparin Sodium (Enoxaparin 30 Mg/0.3 Ml Syringe) 30 mg SC BID [facility] Last Admin: 03/02/20 07:42 Dose: 30 mg Documented by: Estrogens Conjugated (Estrogens,Conj. 0.625 Mg Tablet) 0.625 mg PO DAILY [facility] Last Admin: 03/02/20 07:45 Dose: Not Given Documented by: Fluoxetine HCl (Fluoxetine 20 Mg Capsule) 20 mg PO DAILY [facility] Last Admin: 03/02/20 07:43 Dose: 20 mg Documented by: Gabapentin (Gabapentin 300 Mg Capsule) 300 mg PO QHS [facility] Last Admin: 03/01/20 23:12 Dose: 300 mg Documented by: Glipizide (Glipizide 10 Mg Tablet) 10 mg PO DAILYCM [facility] Last Admin: 03/02/20 07:42 Dose: 10 mg Documented by: Glucagon (Glucagon 1 Mg/Ml Syringe) 1 mg IM .X1 PRN PRN Reason: Hypoglycemia Guaifenesin (Guaifenesin 1,200 Mg Tablet) 1,200 mg PO BID [facility] Last Admin: 03/02/20 07:44 Dose: 1,200 mg Documented by: Sodium Chloride () 250 mls @ 15 mls/hr IV .[id number] PRN PRN Reason: Saline Flush Last Infusion: 02/27/20 04:18 Dose: 0 mls/hr Documented by: Insulin Glargine (Insulin Glargine 100 Units/Ml Pen) 10 units SC BREAKFAST [facility] Last Admin: 03/02/20 07:40 Dose: 10 units Documented by: Insulin Human Lispro (Insulin Lispro 100 Unit/Ml Insuln.Pen) 0 unit SC ACHS [facility]; Protocol Last Admin: 03/02/20 07:41 Dose: 4 units Documented by: Insulin Human Lispro (Insulin Lispro 100 Unit/Ml Insuln.Pen) 5 unit SC TIDAC [facility] Last Admin: 03/02/20 07:41 Dose: 5 units Documented by: Levothyroxine Sodium (Levothyroxine 75 Mcg Tablet) 75 mcg PO DAILY [facility] Last Admin: 03/02/20 07:42 Dose: 75 mcg Documented by: Loperamide HCl (Loperamide 2 Mg Capsule) 2 mg PO Q4H PRN PRN PRN Reason: Diarrhea Last Admin: 02/28/20 10:58 Dose: 2 mg Documented by: Loratadine (Loratadine 10 Mg Tablet) 10 mg PO QHS [facility] Last Admin: 03/01/20 23:14 Dose: 10 mg Documented by: Melatonin (Melatonin 3 Mg Tablet) 3 mg PO QHS PRN PRN PRN Reason: INSOMNIA Last Admin: 02/29/20 22:33 Dose: 3 mg Documented by: Ondansetron HCl (Ondansetron 4 Mg/2 Ml Vial) 4 mg IV Q8H PRN PRN PRN Reason: NAUSEA/VOMITING Pantoprazole Sodium (Pantoprazole Sodium 40 Mg Tablet) 40 mg PO DAILY [facility] Last Admin: 03/02/20 07:44 Dose: 40 mg Documented by: Pramipexole Dihydrochloride (Pramipexole Di-Hcl 0.5 Mg Tablet) 0.5 mg PO QHS [facility] Last Admin: 03/01/20 23:10 Dose: 0.5 mg Documented by: Senna/Docusate Sodium (Senna/Docusate Sodium 1 Tablet) 2 tablet PO BID PRN PRN PRN Reason: Constipation Sodium Chloride (0.9% Saline Lock 10 Ml Syringe) 10 - 40 ml IV UD PRN PRN Reason: SALINE FLUSH Last Admin: 02/27/20 20:29 Dose: 10 ml Documented by: STROKE Vital Signs/Narrative: Vital Signs Temp Pulse Resp BP Pulse Ox 03/02/20 07:37 98.7 F 72 20 H 126/74 H 93 Medical Necessity - Tobacco Use Smoking Status: Never smoker Tobacco Use: Non-smoker Assessment/Plan All Active Problems (Last Reviewed 02/26/20 @ 23:[address] Kwesi Hamilton MD) Pneumonia (Acute) Hypoxia (Acute) 1. Acute hypoxic respiratory insufficiency secondary to COVID-19 pneumonia/JOSE EDUARDO -Continue with Decadron and remdesivir. -She is maintaining her oxygen sats on 4 L -In discussion with her her initial symptoms started 02/20/2020 -Need to monitor renal function as well as liver function while on remdesivir -Can place her on CPAP/BiPAP at night if she uses it at home -D-dimer was normal for age 2. DM 2 -Continue with her glimepiride, will adjust her insulin as necessary given the Decadron -Checks AC at bedtime 3. Anxiety/depression -Stable -Continue with Wellbutrin, BuSpar, Prozac 4. GERD -Stable -Continue with PPI 5. Hypothyroidism -Stable -Continue with Synthroid DVT: Lovenox Inpatient E&M: 18196 Subs Hosp L2
[2020-03-02 12:05] LABS: Bedside Glucose 263 mg/dL (70-110)
[2020-03-02 14:45] VITALS: BP 119/85; PULSE 62; RESP 20; TEMP 36.6; O2SAT 93
[2020-03-02 17:25] LABS: Bedside Glucose 444 mg/dL (70-110)
[2020-03-02 21:35] VITALS: BP 123/72; PULSE 69; RESP 16; TEMP 36.6; O2SAT 94
[2020-03-02] MEDS: Pramipexole Di-HCl 0.5 MG Tablet PO (21:41)
[2020-03-02] MEDS: Gabapentin 300 MG Capsule PO (21:41)
[2020-03-02] MEDS: Benzonatate 100 MG Capsule PO (21:43)
[2020-03-02 22:05] LABS: Bedside Glucose 335 mg/dL (70-110)
[2020-03-03 04:59] VITALS: BP 118/69; PULSE 69; RESP 16; TEMP 36.3; O2SAT 95
--- NOTE | 2020-03-03 07:25 | PN_ITS ---
Patient Problems: Active and Suspected Problems (Last Reviewed 02/26/20 @ 23:[address] Kwesi Hamilton MD) Pneumonia (Acute) Hypoxia (Acute) Vitals/I&O's: Vital Signs Temp Pulse Resp BP Pulse Ox 97.4 F L 69 16 118/69 95 03/03/20 04:59 03/03/20 04:59 03/03/20 04:59 03/03/20 04:59 03/03/20 04:59 Oxygen Flow Rate (L/min) 5 Oxygen Delivery Method Nasal Cannula Weight: 79.742 kg Body Mass Index (BMI) 26.7 Intake and Output for Last 24 Hours 03/01/20 03/02/20 03/03/20 23:59 23:59 23:59 Intake Total 500 / 500 1150 / 1150 Output Total 550 / 550 500 / 500 Balance -50 / -50 650 / 650 Microbiology Past 72 Hours 02/26/20 18:40 Blood Culture (Wb) - Anticubital Left Blood Culture - Final No growth in 5 days. 02/26/20 18:45 Blood Culture (Wb) - Anticubital Right Blood Culture - Final No growth in 5 days. Laboratory Results 03/02/20 07:32: POC Glucose 220 H 03/02/20 11:29: POC Glucose 263 H 03/02/20 16:15: POC Glucose 444 H 03/02/20 21:39: POC Glucose 335 H Current Medications Acetaminophen (Acetaminophen 325 Mg Tablet) 650 mg PO Q6H PRN PRN PRN Reason: Pain Score 1-10/Temp > 100.7 F Last Admin: 02/27/20 20:27 Dose: 650 mg Documented by: Albuterol Sulfate (Albuterol Ih 8.5 Gm (Proair) Inhaler (200 Puffs)) 2 puff INHALATION Q4H PRN PRN PRN Reason: SOB/WHEEZING Benzonatate (Benzonatate 100 Mg Capsule) 100 mg PO TID PRN PRN PRN Reason: COUGH Last Admin: 03/02/20 21:43 Dose: 100 mg Documented by: Bupropion HCl (Bupropion (Xl) 150 Mg Tablet.Xl) 150 mg PO DAILY [facility] Last Admin: 03/02/20 07:44 Dose: 150 mg Documented by: Buspirone HCl (Buspirone 5 Mg Tablet) 10 mg PO BID [facility] Last Admin: 03/02/20 21:41 Dose: 10 mg Documented by: Dexamethasone (Dexamethasone 4 Mg Tablet) 6 mg PO DAILY@0800 [facility] Last Admin: 03/02/20 07:42 Dose: 6 mg Documented by: Dextrose (Dextrose 50%-Water 25 Gm/50 Ml Disp.Syrin) 0 gm IV X1 PRN; Protocol PRN Reason: Hypoglycemia Enoxaparin Sodium (Enoxaparin 30 Mg/0.3 Ml Syringe) 30 mg SC BID [facility] Last Admin: 03/02/20 21:42 Dose: 30 mg Documented by: Estrogens Conjugated (Estrogens,Conj. 0.625 Mg Tablet) 0.625 mg PO DAILY [facility] Last Admin: 03/02/20 07:45 Dose: Not Given Documented by: Fluoxetine HCl (Fluoxetine 20 Mg Capsule) 20 mg PO DAILY [facility] Last Admin: 03/02/20 07:43 Dose: 20 mg Documented by: Gabapentin (Gabapentin 300 Mg Capsule) 300 mg PO QHS [facility] Last Admin: 03/02/20 21:41 Dose: 300 mg Documented by: Glipizide (Glipizide 10 Mg Tablet) 10 mg PO DAILYCM [facility] Last Admin: 03/02/20 07:42 Dose: 10 mg Documented by: Glucagon (Glucagon 1 Mg/Ml Syringe) 1 mg IM .X1 PRN PRN Reason: Hypoglycemia Guaifenesin (Guaifenesin 1,200 Mg Tablet) 1,200 mg PO BID [facility] Last Admin: 03/02/20 21:41 Dose: 1,200 mg Documented by: Sodium Chloride () 250 mls @ 15 mls/hr IV .[id number] PRN PRN Reason: Saline Flush Last Infusion: 02/27/20 04:18 Dose: 0 mls/hr Documented by: Insulin Glargine (Insulin Glargine 100 Units/Ml Pen) 10 units SC BREAKFAST [facility] Last Admin: 03/02/20 07:40 Dose: 10 units Documented by: Insulin Human Lispro (Insulin Lispro 100 Unit/Ml Insuln.Pen) 0 unit SC ACHS [facility]; Protocol Last Admin: 03/02/20 21:42 Dose: 8 units Documented by: Insulin Human Lispro (Insulin Lispro 100 Unit/Ml Insuln.Pen) 5 unit SC TIDAC [facility] Last Admin: 03/02/20 16:17 Dose: 5 units Documented by: Levothyroxine Sodium (Levothyroxine 75 Mcg Tablet) 75 mcg PO DAILY [facility] Last Admin: 03/02/20 07:42 Dose: 75 mcg Documented by: Loperamide HCl (Loperamide 2 Mg Capsule) 2 mg PO Q4H PRN PRN PRN Reason: Diarrhea Last Admin: 02/28/20 10:58 Dose: 2 mg Documented by: Loratadine (Loratadine 10 Mg Tablet) 10 mg PO QHS [facility] Last Admin: 03/01/20 23:14 Dose: 10 mg Documented by: Melatonin (Melatonin 3 Mg Tablet) 3 mg PO QHS PRN PRN PRN Reason: INSOMNIA Last Admin: 02/29/20 22:33 Dose: 3 mg Documented by: Ondansetron HCl (Ondansetron 4 Mg/2 Ml Vial) 4 mg IV Q8H PRN PRN PRN Reason: NAUSEA/VOMITING Pantoprazole Sodium (Pantoprazole Sodium 40 Mg Tablet) 40 mg PO DAILY [facility] Last Admin: 03/02/20 07:44 Dose: 40 mg Documented by: Pramipexole Dihydrochloride (Pramipexole Di-Hcl 0.5 Mg Tablet) 0.5 mg PO QHS [facility] Last Admin: 03/02/20 21:41 Dose: 0.5 mg Documented by: Senna/Docusate Sodium (Senna/Docusate Sodium 1 Tablet) 2 tablet PO BID PRN PRN PRN Reason: Constipation Sodium Chloride (0.9% Saline Lock 10 Ml Syringe) 10 - 40 ml IV UD PRN PRN Reason: SALINE FLUSH Last Admin: 02/27/20 20:29 Dose: 10 ml Documented by: STROKE Vital Signs/Narrative: Vital Signs Temp Pulse Resp BP Pulse Ox 03/03/20 04:59 97.4 F L 69 16 118/69 95 Medical Necessity - Tobacco Use Smoking Status: Never smoker Tobacco Use: Non-smoker Assessment/Plan All Active Problems (Last Reviewed 02/26/20 @ 23:[address] Kwesi Hamilton MD) Pneumonia (Acute) Hypoxia (Acute) Patient is a 64-year-old lady admitted with progressive shortness of breath and assessment of acute respiratory insufficiency secondary to COVID-19 pneumonia made admitted to regular nursing floor for further management Acute hypoxic respiratory insufficiency secondary to COVID-19 Diabetes mellitus type 2 Depression with anxiety GERD Hypothyroidism Obstructive sleep apnea
[2020-03-03] MEDS: Insulin Lispro 100 UNIT/ML INSULN.PEN SC ×4 (08:18→12:19)
[2020-03-03] MEDS: dexAMETHasone 4 MG Tablet 6 MG PO (08:20)
[2020-03-03] MEDS: glipiZIDE 10 MG Tablet PO (08:21)
[2020-03-03] MEDS: busPIRone 5 MG Tablet 10 MG PO (08:31)
[2020-03-03] MEDS: guaiFENesin 1,200 MG Tablet 1200 MG PO (08:31)
[2020-03-03] MEDS: Enoxaparin 30 MG/0.3 ML Syringe SC (08:31)
[2020-03-03] MEDS: FLUoxetine 20 MG Capsule PO (08:32)
[2020-03-03] MEDS: buPROPion (XL) 150 MG TABLET.XL PO (08:32)
[2020-03-03] MEDS: Pantoprazole Sodium 40 MG Tablet PO (08:32)
[2020-03-03] MEDS: Estrogens,Conj. 0.625 MG Tablet PO (08:32)
[2020-03-03] MEDS: Levothyroxine 75 MCG Tablet PO (08:32)
[2020-03-03 08:42] VITALS: BP 116/62; PULSE 77; RESP 16; TEMP 36.6; O2SAT 86; O2SAT 89; O2SAT 90; O2SAT 94
[2020-03-03 09:20] LABS: Bedside Glucose 185 mg/dL (70-110)
--- NOTE | 2020-03-03 09:20 | CASEMGMT ---
RN CM Note: Patient to be discharged to home today. Call to room, intro role of CM to patient via phone. Patient is feeling improved, still tired and sob with exertion but feels able to return home. Reviewed oxygen set up with patient. She states she will be staying @ her daughter's home @ [id number] , [place] [address] (called to registration to update address). Pt has a 5th wheel camper there with heat, water, electric and washer dryer. Pt will stay in camper during quarantine. -Referral, script and oxygen testing faxed to [facility]. Update re: patient staying @ camper given to Chely @ [facility]. Patient requested they call her cell phone to set up delivery or she is agreeable to call them when she is home. -Patient's daughter can provide groceries, meals. Patient's is at home, has not had covid or symptoms and pt plans to stay until she is completed with the quarantine. is working. Corey FLORESN RN ACM
[2020-03-03 10:32] VITALS: O2SAT 86
--- NOTE | 2020-03-03 10:48 | DCINST_ITS ---
- Discharge Diagnoses Current Active Problems: Current Active and Chronic Problems (Last Reviewed 02/26/20 @ 23:[address] Kwesi Hamilton MD) Pneumonia (Acute) Hypoxia (Acute) Pulmonary hypertension (Chronic) Recent echocardiogram shows a PAS P of 30 mmHg, this qualifies as mild pulmonary hypertension. May consider repeating echocardiogram 6 months after initiating pressure support therapy. Follow-up with Dr. Whitley in 2 months. JOSE EDUARDO (obstructive sleep apnea) (Chronic) Patient has been ordered nasal CPAP of 11 cmH2O and will be set up soon. Will follow up with Dr. Whitley in 2 months to evaluate her response to pressure support therapy. The patient has been encouraged to contact the office with any difficulties that she may be experiencing in the meantime. No additional testing at this time. Depression (Chronic) Anxiety (Chronic) Hyperlipemia (Chronic) Fatigue (Chronic) Joint pain (Chronic) Headache (Chronic) Snoring (Chronic) unintentional weight gain (Chronic) Shortness of breath (Chronic) Cough (Chronic) Significantly improved with the addition of nasal steroid. Allergic rhinitis (Chronic) GERD (gastroesophageal reflux disease) (Chronic) Postnasal drip (Chronic) Has improved with the addition of the nasal steroid, both symptomatically as well as on physical exam. No change in maintenance medications at this time. Follow-up with Dr. Whitley in 2 months. Narcolepsy (Chronic) Hypersomnia (Chronic) You will use the following diet at home:: Calorie/Carbohydrate Controlled (specify 1200, 1400, etc) - 1800 Your food should be the consistency of: Regular Discharge Activity: Return to Normal Activity Call your doctor if you observe: Fever of 101 or Higher, Shortness of breath, Dizziness, Fainting spells Allergies/Adverse Reactions: Allergies Penicillins Adverse Reaction (Mild, Verified 02/26/20 17:22) Rash ANTIHISTAMINES Adverse Reaction (Intermediate, Uncoded 02/26/20 17:22) Other intensifies RLS Medications to take at Discharge Cetirizine HCl [Allergy Relief] 10 mg PO QHS 06/17/15 Esomeprazole Mag Trihydrate [Nexium] 40 mg PO DAILY 06/17/15 Gabapentin [Neurontin] 300 mg PO QHS 06/17/15 Levothyroxine [Synthroid] 75 mcg PO DAILY 06/17/15 Ropinirole HCl [Requip] 1 mg PO QHS 03/29/16 buPROPion XL [Wellbutrin Xl] 150 mg PO DAILY 06/17/15 albuterol sulfate 90 mcg/actuation aerosol inhaler 2 puff INHALATION Q4H g 02/23/17 Benzonatate [Tessalon Perle] 100 mg PO TID PRN PRN 02/26/20 Buspirone HCl 10 mg PO BID 02/26/20 Fluoxetine [Prozac] 20 mg PO DAILY 02/26/20 Glipizide [Glucotrol] 10 mg PO DAILY 02/26/20 Metformin HCl 1,000 mg PO BID 02/26/20 Acetaminophen [Tylenol Tablet] 650 mg PO Q6H PRN PRN tab 03/03/20 Aspirin E.C. [Ecotrin] 325 mg PO BID #60 tab 03/03/20 Dexamethasone [Decadron] 6 mg PO DAILY 5 Days #5 tab 03/03/20 Famotidine 20 mg PO BID #60 tab 03/03/20 Guaifenesin [Mucinex] 1,200 mg PO BID #30 tab 03/03/20 The following prescriptions were given: Dexamethasone [Decadron] 6 mg PO DAILY 5 Days #5 tab Transmission Status: Pending to [facility] Aspirin E.C. [Ecotrin] 325 mg PO BID #60 tab Transmission Status: Pending to [facility] Famotidine 20 mg PO BID #60 tab Transmission Status: Pending to [facility] Guaifenesin [Mucinex] 1,200 mg PO BID #30 tab Transmission Status: Pending to [facility] Primary Care Physician: Christian Saini NP, CLASSIFIER OPERATOR-C [Primary Care Provider] - Please follow up with your Primary Care Physician in: Call to schedule an appointment in 2 weeks Test Results: Test results from this visit will be discussed in further detail at your follow- up appointment, if applicable. Proposed Discharge Date: 03/03/20
--- NOTE | 2020-03-03 11:00 | DS.PCM_ITS ---
Discharge Date and Diagnosis - Problem List Patient Problems: Active and Suspected Problems (Last Reviewed 02/26/20 @ 23:[address] Kwesi Hamilton MD) Pneumonia (Acute) Hypoxia (Acute) Date of Admission: 02/26/20 Date of Discharge: 03/03/20 - Primary Discharge Diagnosis Acute Problems: Active Problems (Last Reviewed 02/26/20 @ 23:[address] Kwesi Hamilton MD) Pneumonia (Acute) Hypoxia (Acute) - Secondary Discharge Diagnosis Chronic Problems: Chronic Problems (Last Reviewed 02/26/20 @ 23:[address] Kwesi Hamilton MD) Pulmonary hypertension (Chronic) Recent echocardiogram shows a PAS P of 30 mmHg, this qualifies as mild pulmonary hypertension. May consider repeating echocardiogram 6 months after initiating pressure support therapy. Follow-up with Dr. Whitley in 2 months. JOSE EDUARDO (obstructive sleep apnea) (Chronic) Patient has been ordered nasal CPAP of 11 cmH2O and will be set up soon. Will follow up with Dr. Whitley in 2 months to evaluate her response to pressure support therapy. The patient has been encouraged to contact the office with any difficulties that she may be experiencing in the meantime. No additional testing at this time. Depression (Chronic) Anxiety (Chronic) Hyperlipemia (Chronic) Fatigue (Chronic) Joint pain (Chronic) Headache (Chronic) Snoring (Chronic) unintentional weight gain (Chronic) Shortness of breath (Chronic) Cough (Chronic) Significantly improved with the addition of nasal steroid. Allergic rhinitis (Chronic) GERD (gastroesophageal reflux disease) (Chronic) Postnasal drip (Chronic) Has improved with the addition of the nasal steroid, both symptomatically as well as on physical exam. No change in maintenance medications at this time. Follow-up with Dr. Whitley in 2 months. Narcolepsy (Chronic) Hypersomnia (Chronic) Hospital Course and Treatment Imaging Results: Clinical Impression(s) from Imaging Studies Chest X-Ray 02/26/20 19:00 IMPRESSION: Right lower lobe infiltrate. Electronically Signed: Giovanny Stafford, at 20:03 EST Tel , Service support , Summary of Care Provided: Patient is a 64-year-old lady admitted with progressive shortness of breath and assessment of acute respiratory insufficiency secondary to COVID-19 pneumonia made 1. Acute hypoxic respiratory insufficiency secondary to COVID-19 -admitted managed with remdesivir as well as Decadron. Patient was discharged home on Decadron for further management discharged home with Decadron to complete a 10-day course 2. Diabetes mellitus type 2 ?Patient did experience concomitant hyperglycemia due to use of steroids adjusted home regimen and patient placed on long-acting insulin with sliding scale coverage 3.. Hypothyroidism - Patient is on levothyroxine home dose continued 4. Depression with anxiety ?Patient is on SSRI did continue 5. GERD Discharged home on famotidine 6. Obstructive sleep apnea PAP therapy Patient Problems: Active and Suspected Problems (Last Reviewed 02/26/20 @ 23:[address] Kwesi Hamilton MD) Pneumonia (Acute) Hypoxia (Acute) - Physical Exam Vitals/I&O's: Vital Signs Temp Pulse Resp BP Pulse Ox 97.9 F 77 16 116/62 89 03/03/20 08:42 03/03/20 08:42 03/03/20 08:42 03/03/20 08:42 03/03/20 08:42 Oxygen Flow Rate (L/min) [ 3 AMBULATION with Oxygen] Oxygen Flow Rate (L/min) 5 Oxygen Delivery Method Nasal Cannula Weight: 79.742 kg Body Mass Index (BMI) 26.7 Intake and Output for Last 24 Hours 03/01/20 03/02/20 03/03/20 23:59 23:59 23:59 Intake Total 500 / 500 1150 / 1150 Output Total 550 / 550 500 / 500 Balance -50 / -50 650 / 650 General: Alert HEENT: Atraumatic Lungs: Diminished Cardiovascular: Regular rate, Regular Rhythm Microbiology Past 72 Hours 02/26/20 18:40 Blood Culture (Wb) - Anticubital Left Blood Culture - Final No growth in 5 days. 02/26/20 18:45 Blood Culture (Wb) - Anticubital Right Blood Culture - Final No growth in 5 days. Laboratory Results 03/02/20 11:29: POC Glucose 263 H 03/02/20 16:15: POC Glucose 444 H 03/02/20 21:39: POC Glucose 335 H 03/03/20 08:13: POC Glucose 185 H Current Medications Acetaminophen (Acetaminophen 325 Mg Tablet) 650 mg PO Q6H PRN PRN PRN Reason: Pain Score 1-10/Temp > 100.7 F Last Admin: 02/27/20 20:27 Dose: 650 mg Documented by: Albuterol Sulfate (Albuterol Ih 8.5 Gm (Proair) Inhaler (200 Puffs)) 2 puff INHALATION Q4H PRN PRN PRN Reason: SOB/WHEEZING Benzonatate (Benzonatate 100 Mg Capsule) 100 mg PO TID PRN PRN PRN Reason: COUGH Last Admin: 03/02/20 21:43 Dose: 100 mg Documented by: Bupropion HCl (Bupropion (Xl) 150 Mg Tablet.Xl) 150 mg PO DAILY [facility] Last Admin: 03/03/20 08:32 Dose: 150 mg Documented by: Buspirone HCl (Buspirone 5 Mg Tablet) 10 mg PO BID [facility] Last Admin: 03/03/20 08:31 Dose: 10 mg Documented by: Dexamethasone (Dexamethasone 4 Mg Tablet) 6 mg PO DAILY@0800 [facility] Last Admin: 03/03/20 08:20 Dose: 6 mg Documented by: Dextrose (Dextrose 50%-Water 25 Gm/50 Ml Disp.Syrin) 0 gm IV X1 PRN; Protocol PRN Reason: Hypoglycemia Enoxaparin Sodium (Enoxaparin 30 Mg/0.3 Ml Syringe) 30 mg SC BID [facility] Last Admin: 03/03/20 08:31 Dose: 30 mg Documented by: Estrogens Conjugated (Estrogens,Conj. 0.625 Mg Tablet) 0.625 mg PO DAILY [facility] Last Admin: 03/03/20 08:32 Dose: 0.625 mg Documented by: Fluoxetine HCl (Fluoxetine 20 Mg Capsule) 20 mg PO DAILY [facility] Last Admin: 03/03/20 08:32 Dose: 20 mg Documented by: Gabapentin (Gabapentin 300 Mg Capsule) 300 mg PO QHS [facility] Last Admin: 03/02/20 21:41 Dose: 300 mg Documented by: [facility] ([facility] 10 Mg [facility]) [facility] Last Admin: 03/03/20 08:21 Dose: 10 mg Documented by: Glucagon (Glucagon 1 Mg/Ml Syringe) 1 mg IM .X1 PRN PRN Reason: Hypoglycemia Guaifenesin (Guaifenesin 1,200 Mg Tablet) 1,200 mg PO BID [facility] Last Admin: 03/03/20 08:31 Dose: 1,200 mg Documented by: Sodium Chloride () 250 mls @ 15 mls/hr IV .[id number] PRN PRN Reason: Saline Flush Last Infusion: 02/27/20 04:18 Dose: 0 mls/hr Documented by: Insulin Glargine (Insulin Glargine 100 Units/Ml Pen) 10 units SC BREAKFAST [facility] Last Admin: 03/03/20 08:20 Dose: 10 units Documented by: Insulin Human Lispro (Insulin Lispro 100 Unit/Ml Insuln.Pen) 0 unit SC ACHS [facility]; Protocol Last Admin: 03/03/20 08:18 Dose: 2 units Documented by: Insulin Human Lispro (Insulin Lispro 100 Unit/Ml Insuln.Pen) 5 unit SC TIDAC [facility] Last Admin: 03/03/20 08:19 Dose: 5 units Documented by: Levothyroxine Sodium (Levothyroxine 75 Mcg Tablet) 75 mcg PO DAILY [facility] Last Admin: 03/03/20 08:32 Dose: 75 mcg Documented by: Loperamide HCl (Loperamide 2 Mg Capsule) 2 mg PO Q4H PRN PRN PRN Reason: Diarrhea Last Admin: 02/28/20 10:58 Dose: 2 mg Documented by: Loratadine (Loratadine 10 Mg Tablet) 10 mg PO QHS [facility] Last Admin: 03/01/20 23:14 Dose: 10 mg Documented by: Melatonin (Melatonin 3 Mg Tablet) 3 mg PO QHS PRN PRN PRN Reason: INSOMNIA Last Admin: 02/29/20 22:33 Dose: 3 mg Documented by: Ondansetron HCl (Ondansetron 4 Mg/2 Ml Vial) 4 mg IV Q8H PRN PRN PRN Reason: NAUSEA/VOMITING Pantoprazole Sodium (Pantoprazole Sodium 40 Mg Tablet) 40 mg PO DAILY [facility] Last Admin: 03/03/20 08:32 Dose: 40 mg Documented by: Pramipexole Dihydrochloride (Pramipexole Di-Hcl 0.5 Mg Tablet) 0.5 mg PO QHS [facility] Last Admin: 03/02/20 21:41 Dose: 0.5 mg Documented by: Senna/Docusate Sodium (Senna/Docusate Sodium 1 Tablet) 2 tablet PO BID PRN PRN PRN Reason: Constipation Sodium Chloride (0.9% Saline Lock 10 Ml Syringe) 10 - 40 ml IV UD PRN PRN Reason: SALINE FLUSH Last Admin: 02/27/20 20:29 Dose: 10 ml Documented by: Discharge Diet: 1800 Calorie Control Diet Discharge Activity: Return to Normal Activity Call your doctor if you observe: Fever of 101 or Higher, Shortness of breath, Dizziness, Fainting spells Home Medications: Medications to take at Discharge Cetirizine HCl [Allergy Relief] 10 mg PO QHS 06/17/15 Esomeprazole Mag Trihydrate [Nexium] 40 mg PO DAILY 06/17/15 Gabapentin [Neurontin] 300 mg PO QHS 06/17/15 Levothyroxine [Synthroid] 75 mcg PO DAILY 06/17/15 Ropinirole HCl [Requip] 1 mg PO QHS 06/17/15 buPROPion XL [Wellbutrin Xl] 150 mg PO DAILY 06/17/15 albuterol sulfate 90 mcg/actuation aerosol inhaler 2 puff INHALATION Q4H g 02/23/17 Benzonatate [Tessalon Perle] 100 mg PO TID PRN PRN 02/26/20 Buspirone HCl 10 mg PO BID 02/26/20 Fluoxetine [Prozac] 20 mg PO DAILY 02/26/20 Glipizide [Glucotrol] 10 mg PO DAILY 02/26/20 Metformin HCl 1,000 mg PO BID 02/26/20 Acetaminophen [Tylenol Tablet] 650 mg PO Q6H PRN PRN tab 03/03/20 Aspirin E.C. [Ecotrin] 325 mg PO BID #60 tab 03/03/20 Dexamethasone [Decadron] 6 mg PO DAILY 5 Days #5 tab 03/03/20 Famotidine 20 mg PO BID #60 tab 03/03/20 Guaifenesin [Mucinex] 1,200 mg PO BID #30 tab 03/03/20 Following Prescriptions Were Given to Patient: Dexamethasone [Decadron] 6 mg PO DAILY 5 Days #5 tab Transmission Status: Pending to [facility] Aspirin E.C. [Ecotrin] 325 mg PO BID #60 tab Transmission Status: Pending to [facility] Famotidine 20 mg PO BID #60 tab Transmission Status: Pending to [facility] Guaifenesin [Mucinex] 1,200 mg PO BID #30 tab Transmission Status: Pending to [facility] Primary Care Physician: Christian Saini STUDENT SERVICES VICE PRESIDENT, STUDENT SERVICES VICE PRESIDENT-C [Primary Care Provider] - Please follow up with your Primary Care Physician in: Call to schedule an appointment in 2 weeks Disposition: Home Minutes spent on discharge:: 45 Patient Condition:: Stable Medical Necessity - Tobacco Use Smoking Status: Never smoker Tobacco Use: Non-smoker Meaningful Use Info Meaningful Use Diagnoses (Choose all that apply): None applicable Inpatient E&M: 72745 Disch Hosp
[2020-03-03 15:11] LABS: Bedside Glucose 326 mg/dL (70-110)
[2020-03-03 15:30] VITALS: BP 115/70; PULSE 68; RESP 16; TEMP 36.7; O2SAT 95
--- NOTE | 2020-03-04 15:37 | CASEMGMT ---
SUMMER CM DC PHONE CALL DC DATE: 03/04/20 DC DISPOSITION: Home DC DIAGNOSIS: SARS COVID-19 F/U APPTS MADE PRIOR TO DC: no PRESCRIPTIONS ACQUIRED BY PT: yes Patient states she has her oxygen, is staying in the [address] wheel camper at her daughter's house and has no needs. Her son-in-law is bring groceries, food out to her and she has her medications. no concerns @ this time. Corey FLORESN RN ACM
== END 2020-03-03 16:05 | disposition home or self-care (01) | DRG 177 ==
LOC: ED 21:27 → MS2 22:22
PROVIDERS: Family Medicine; Admitting Provider Hospitalist; Emergency Provider Emergency Medicine; PCP Nurse Practitioner Primary Care; Visit Provider Internal Medicine
DX: U07.1 COVID-19 (principal); J12.89 Other viral pneumonia; R06.89 Other abnormalities of breathing; R09.02 Hypoxemia; E11.65 Type 2 diabetes mellitus with hyperglycemia; T38.0X5A Adverse effect of glucocorticoids and synthetic analogues, initial encounter; E03.9 Hypothyroidism, unspecified; F32.9 Major depressive disorder, single episode, unspecified; F41.9 Anxiety disorder, unspecified; K21.9 Gastro-esophageal reflux disease without esophagitis; G47.33 Obstructive sleep apnea (adult) (pediatric); Z79.84 Long term (current) use of oral hypoglycemic drugs; Z79.899 Other long term (current) drug therapy; E87.6 Hypokalemia; R19.7 Diarrhea, unspecified
CPT/HCPCS: 36415; 71045; 80053; 82962; 83605; 83735; 84145; 84484; 85025; 85379; 85384; 87040; 87426; 87449; 87633; 87635; 93005; 99251; 99284; J7050; 90686; A4216; G0463; U0002